=== PATIENT | male | born 1925 | race Asian ===

== ENCOUNTER 2016-05-14 00:56 | Emergency (ER) | payer MEDICARE, OTHER ==
[2016-05-14] MEDS ORDERED: NS 0.9% 1000 ML* 1,000 ML IV ONE (01:16)
[2016-05-14 01:35] LABS: Hematocrit 35 % (42-52); Hemoglobin 11.5 g/dl (14.0-18.0); Mean Corpuscular HGB Conc 33 g/dl (31-36); Mean Corpuscular Hemoglobin 30 pg (27-31); Mean Corpuscular Volume 89 fL (80-94); Mean Platelet Volume 10 um3 (7.4-10.4); Red Cell Distribution Width 14 % (10.5-15); White Blood Count 7.6 10^3/ul (3.5-10.8)
[2016-05-14 01:52] LABS: Albumin 3.1 g/dL (3.2-5.2); BUN/Creatinine Ratio 18.5 (8-20); Calcium 8.1 mg/dL (8.6-10.3); EGFR African American 38.3 (>60); EGFR Non-African American 29.8 (>60); Globulin 3.2 g/dL (2-4); Magnesium 2.3 mg/dL (1.9-2.7); Total Bilirubin 0.4 mg/dL (0.2-1.0); Total Protein 6.3 g/dL (6.4-8.9)
[2016-05-14 01:53] LABS: Troponin I 0.02 ng/mL (<0.04)
[2016-05-14 01:57] LABS: Potassium 3.9 mmol/L (3.5-5.0)
[2016-05-14 03:58] LABS: Urine Bacteria Absent (Absent); Urine Bilirubin Negative (Negative); Urine Glucose 3+(>=500 mg/dL) (Negative); Urine Nitrite Negative (Negative)
[2016-05-14 04:27] VITALS: BP 167/69
--- NOTE | 2016-05-14 05:48 | ED ---
brad Trivedi Timothy, scribed for Junior Cookuel on 05/14/16 at 0118 . HPI Diabetic - HPI Summary HPI Summary: LEVEL V CAVEAT: Pt appears to have dementia and is not oriented. Carson Rodriguez is an 89 yo male presenting to [facility] with low blood sugar, his family administered some kind of food or drink and his blood sugar increased. An parts interpreter is used via Ipad, ID number [id number]. He states he denies any MHx. He is oriented to his age, but not to place or time, as he states the current president is Kumar Barone. His Mx per his chart includes DM, HLD, HTN, CVA, tuberculosis, BPH, TURP, anxiety, and tobacco use for 20 years. - History Of Current Complaint Time Seen by Provider: 05/14/16 01:15 Hx Obtained From: Patient Hx From Patient Unobtainable Due To: Dementia Onset/Duration: Sudden Onset Timing: Constant Severity Initially: Moderate Severity Currently: Moderate Character: Alert Alleviating: Food Associated Signs & Symptoms: Negative - Allergies/Home Medications Allergies/Adverse Reactions: Allergies Allergy/AdvReac Type Severity Reaction Status Date / Time No Known Allergies Allergy Verified 05/14/16 01:50 Home Medications: Home Medications Amlodipine Besylate [Norvasc-] 5 mg PO DAILY 05/14/16 [History Confirmed ] Insulin Aspart [Novolog Flexpen] 8 unit INJ TID WITH MEALS 05/14/16 [History Confirmed 05/14/16] Insulin GLARGINE(*) [Lantus(*)] 16 units SUBCUT BEDTIME 05/14/16 [History Confirmed 05/14/16] PMH/Surg Hx/FS Hx/Imm Hx Endocrine/Hematology History: Reports: Hx Diabetes - NIDDM Cardiovascular History: Reports: Hx Hypercholesterolemia, Hx Hypertension, Other Cardiovascular Problems/Disorders - HYPERCHOLESTEROLEMIA, IDDM Denies: Hx Pacemaker/ICD History: Reports: Hx Benign Prostatic Hyperplasia, Other Problems/ Disorders - TURP Sensory History: Denies: Hx Hearing Aid Psychiatric History: Reports: Hx Anxiety Denies: Hx Panic Disorder - Surgical History Surgery Procedure, Year, and Place: TURP 2001, LEFT LEG OPEN REDUCTION APPROX 38 YRS AGO, CATARACTS. Infectious Disease History: Reports: Hx Tuberculosis - Family History Known Family History: Negative: Cardiac Disease, Hypertension, Diabetes - Social History Alcohol Use: None Substance Use Type: Reports: None Hx Tobacco Use: No Smoking Status (MU): Former Smoker Review of Systems - ROS Summary Review of Systems Summary: LEVEL V CAVEAT: Pt cannot review systems as he appears to have dementia. Constitutional: Other - low blood sugar Eyes: Negative ENT: Negative Cardiovascular: Negative Respiratory: Negative Gastrointestinal: Negative Genitourinary: Negative Musculoskeletal: Negative Positive: Rash Neurological: Negative Psychological: Normal All Other Systems Reviewed And Are Negative: Yes Physical Exam - Summary Physical Exam Summary: LEVEL V CAVEAT: Pt's PE limited due to dementia Triage Information Reviewed: Yes Vital Signs On Initial Exam: Initial Vital Signs Temp 97 F 05/14/16 01:29 Pulse 61 05/14/16 01:29 Resp 16 05/14/16 01:29 BP 146/58 05/14/16 01:29 Pulse Ox 97 05/14/16 01:29 Vital Signs Reviewed: Yes Completion Of Physical Exam Limited Due To: Dementia Appearance: Positive: Well-Appearing, No Pain Distress, Well-Nourished Skin: Positive: Warm, Skin Color Reflects Adequate Perfusion, Dry Head/Face: Positive: Normal Head/Face Inspection Eyes: Positive: EOMI, TOMÁS ENT: Positive: Normal ENT inspection Neck: Positive: Supple, Nontender Respiratory/Lung Sounds: Positive: Clear to Auscultation, Breath Sounds Present Cardiovascular: Positive: RRR, Pulses are Symmetrical in both Upper and Lower Extremities Abdomen Description: Positive: Nontender, Soft Bowel Sounds: Positive: Present Musculoskeletal: Positive: Normal, Strength/ROM Intact Neurological: Positive: Sensory/Motor Intact. Negative: Alert, Oriented to Person Place, Time Diagnostics - Laboratory Result Diagrams: 05/14/16 01:25 05/14/16 01:25 Lab Statement: Any lab studies that have been ordered have been reviewed, and results considered in the medical decision making process. - Radiology CXR Xray Interpretation: No Acute Changes - No acute disease Radiology Interpretation Completed By: ED Physician - EKG 0147 Cardiac Rate: NL - 62 BPM EKG Interpretation: NSR @ 62 BPM, no new changes Re-Evaluation - Re-Evaluation First Eval Re-Evaluation Time: 04:22 Change: Unchanged Comment: Pt's family is now present in room. They have been informed of his lab results, and wish to take him home. Diabetic Course/Dx - Course Assessment/Plan: Carson Rodriguez is an 89 yo male presenting to [facility] with low blood sugar. An parts interpreter is used via Ipad, ID number [id number]. After revie of Pt's ekg, imaging studies, and lab work, he will be discharged with hypoglycemia and appropriate instructions. - Diagnoses Provider Diagnoses: Hypoglycemia Discharge - Discharge Plan Condition: Stable Disposition: HOME Patient Education Materials: Diabetic Hypoglycemia (ED) Referrals: Michael Monteiro MD [Primary Care Provider] - 3 Days Additional Instructions: Please follow up with your primary care physician regarding your visit to the emergency department today. Return to the emergency department with any new or recurring symptoms. The documentation as recorded by the brad montanez Timothy accurately reflects the service I personally performed and the decisions made by , Cristhian Cook.
--- NOTE | 2016-05-14 08:07 | RAD ---
Indication: Weakness. Single frontal view of the chest performed at 0207 hours was reviewed. Comparison is made with previous exam dated January 09, 2016. No mediastinal shift is noted. Heart is of normal size and configuration. Lung quinonez appear clear. Previous identified infiltrates in the lungs present. Right upper lobe atelectasis or scarring is noted. IMPRESSION: NO ACTIVE CARDIOPULMONARY DISEASE IS NOTED.
== END 2016-05-14 04:27 | disposition home or self-care (01) ==
LOC: ED 00:56
DX: E16.2 Hypoglycemia, unspecified (principal); R21 Rash and other nonspecific skin eruption; Z87.891 Personal history of nicotine dependence
CPT/HCPCS: 36415; 71010; 80053; 81003; 81015; 83735; 83880; 84484; 85025; 85610; 85730; 93005; 99284

== ENCOUNTER 2017-03-07 10:06 | Inpatient (IN) | payer MEDICARE, OTHER ==
[2017-03-07] MEDS: NS 0.9% 1000 ML* 1,000 ML IV SCH ×2 (10:47→20:34)
--- NOTE | 2017-03-07 11:26 | RAD ---
INDICATION: Right face arm and leg weakness. COMPARISON: Comparison is made with a prior CT of the brain from September 12, 2013. TECHNIQUE: Contiguous axial sections of the brain were obtained from the skull base to the vertex without contrast. FINDINGS: The ventricles, cisterns and sulci are enlarged consistent with diffuse atrophy. There are multiple focal areas of decreased density in the subcortical and periventricular white matter suggestive of moderate to severe chronic small vessel ischemic changes. There is a small area of increased density in the cortex and subcortical white matter in the right frontal lobe which likely represents calcification less likely a small area of hemorrhage. No mass effect is present. No other focal abnormalities are seen. There is mild mucosal thickening in the visualized portion of the ethmoid air cells. The visualized portion of the paranasal sinuses and mastoid air cells otherwise appear clear. IMPRESSION: 1. SMALL AREA OF INCREASED DENSITY IN THE RIGHT FRONTAL LOBE LIKELY REPRESENTING CALCIFICATION LESS LIKELY A SMALL AREA OF HEMORRHAGE. CONSIDER MR IMAGING FOR FURTHER EVALUATION. 2. MODERATE TO SEVERE ATROPHY AND CHRONIC SMALL VESSEL ISCHEMIC CHANGES.
[2017-03-07 11:46] LABS: ABS Basophils 0.1 10^3/ul (0-0.2); ABS Eosinophils 0.1 10^3/ul (0-0.6); ABS Lymphocytes 2.2 10^3/ul (1.0-4.8); ABS Monocytes 0.9 10^3/ul (0-0.8); ABS Neutrophils 5.9 10^3/ul (1.5-7.7); ABS Nucleated RBC 0 10^3/ul; Eosinophil % 0.6 % (0-6); Hematocrit 35 % (42-52); Hemoglobin 11.5 g/dl (14.0-18.0); Lymphocyte % 24.2 % (25-47); Mean Corpuscular HGB Conc 33 g/dl (31-36); Mean Corpuscular Hemoglobin 30 pg (27-31); Mean Corpuscular Volume 91 fL (80-94); Mean Platelet Volume 9 um3 (7.4-10.4); Nucleated Red Blood Cells % 0; Platelet Count 113 10^3/ul (150-450); Red Blood Count 3.82 10^6/ul (4.0-5.4); Red Cell Distribution Width 14 % (10.5-15); White Blood Count 9.1 10^3/ul (3.5-10.8)
--- NOTE | 2017-03-07 11:52 | RAD ---
HISTORY: Cough, shortness of breath COMPARISONS: May 14, 2016 VIEWS: 1: frontal portable view of the chest at 11:24 AM FINDINGS: LINES AND TUBES: None. CARDIOMEDIASTINAL SILHOUETTE: The cardiomediastinal silhouette is stable. PLEURA: There is stable pleuroparenchymal scarring of the right upper lung. LUNG PARENCHYMA: The lungs are clear. ABDOMEN: The upper abdomen is clear. There is no subphrenic gas. BONES AND SOFT TISSUES: No bone or soft tissue abnormalities are noted. IMPRESSION: NO ACTIVE CARDIOPULMONARY DISEASE.
[2017-03-07 12:00] LABS: INR 0.96 (0.77-1.02)
[2017-03-07 12:02] LABS: EGFR Non-African American 29.2 (>60)
[2017-03-07 12:09] LABS: Urine Appearance Cloudy; Urine Blood 1+ (Negative); Urine Color Yellow; Urine Ketones Negative (Negative); Urine Protein 2+(100 mg/dL) (Negative); Urine Specific Gravity 1.011 (1.010-1.030); Urine Urobilinogen Negative (Negative)
[2017-03-07] MEDS ORDERED: cefTRIAXone(*) 1 GM in NS 0.9% 50 ML* 50 ML IVPB ONE (13:34)
[2017-03-07] MEDS ORDERED: cefTRIAXone(*) 1 GM ADVAN/BAG ONE (13:40)
[2017-03-07] MEDS ORDERED: Ondansetron INJ* 2 MG/ML VIAL IV PRN (14:35)
[2017-03-07] MEDS ORDERED: Dextrose 50% Syringe 50 ML* 25 GM/50 ML SYRINGE IV PUSH PRN (14:35)
[2017-03-07] MEDS ORDERED: Zosyn per Pharmacy* NOTE FOLLOW UP SCH (15:00)
[2017-03-07] MEDS ORDERED: Piperacillin/Tazobac ADVAN(*) 3.375 GM in NS 0.9% 100 ML* 100 ML IVPB ONE (15:00)
[2017-03-07] MEDS ORDERED: Piperacillin/Tazobac (*) 3.375 GM BAG ONE (15:11)
[2017-03-07] MEDS ORDERED: Azithromycin IV* 500 MG ADVAN VIAL IVPB ONE (16:14)
[2017-03-07] MEDS ORDERED: Insulin LISPRO* 1 UNITS UNIT SUBCUT SCH ×2 (16:30→23:45)
[2017-03-07] MEDS ORDERED: Azithromycin IV(*) 500 MG in NS 0.9% 250 ML* 250 ML IVPB SCH (17:00)
--- NOTE | 2017-03-07 17:03 | ED ---
Ken Trivedi Stephanie, scribed for Farhad Castorena MD on 03/07/17 at 1039 . Neurological HPI - HPI Summary HPI Summary: The pt is an 89 y/o M presenting to the ED with a R sided weakness that began yesterday evening. The patients marine underwriter translates between [place]ian and Estonian for the pt and reports that the pt usually walks with his walker. She reports that yesterday the pt was walking unusually while leaning towards one side of his body. Symptoms include chest congestion, productive cough, SOB and a difference in appearance in the R side of his face (per marine underwriter). The pt denies CP and abd pain. - History of Current Complaint Chief Complaint: EDGeneral Stated Complaint: GENERAL ILLNESS Time Seen by Provider: 03/07/17 10:23 Hx Obtained From: Patient, Family/Rn Medical Surgical, Durability Technician - bilingual interpreter is also marine underwriter Onset/Duration: Sudden Onset, Started days ago - 1 Timing: Constant Pain Intensity: 0 Pain Scale Used: 0-10 Numeric Aggravating: Nothing Alleviating: Nothing Associated Signs and Symptoms: Positive: Weakness - R sided face, upper extremity, and lower extremity, Shortness of Breath. Negative: Chest Pain - Additional Pertinent History Primary Care Physician: [id number] - Allergy/Home Medications Allergies/Adverse Reactions: Allergies Allergy/AdvReac Type Severity Reaction Status Date / Time No Known Allergies Allergy Verified 05/14/16 01:50 Home Medications: Home Medications Aspirin EC Low Dose* [Ecotrin EC Low Dose 81 MG*] 81 mg PO DAILY 03/07/17 [ History Confirmed 03/07/17] Furosemide TAB* [Lasix TAB*] 20 mg PO DAILY 03/07/17 [History Confirmed 03/07/17 ] Metoprolol Succinate XL TAB* [Toprol XL TAB*] 25 mg PO DAILY 03/07/17 [History Confirmed 03/07/17] amLODIPine TAB* [Norvasc 5 mg TAB*] 5 mg PO DAILY 03/07/17 [History Confirmed ] PMH/Surg Hx/FS Hx/Imm Hx Endocrine/Hematology History: Reports: Hx Diabetes - NIDDM Cardiovascular History: Reports: Hx Hypercholesterolemia, Hx Hypertension, Other Cardiovascular Problems/Disorders - HYPERCHOLESTEROLEMIA, IDDM Denies: Hx Pacemaker/ICD History: Reports: Hx Benign Prostatic Hyperplasia, Other Problems/ Disorders - TURP Sensory History: Denies: Hx Hearing Aid Psychiatric History: Reports: Hx Anxiety Denies: Hx Panic Disorder - Surgical History Surgery Procedure, Year, and Place: TURP 2001, LEFT LEG OPEN REDUCTION APPROX 38 YRS AGO, CATARACTS. Infectious Disease History: No Infectious Disease History: Reports: Hx Tuberculosis Denies: Traveled Outside the [place] in Last 30 Days - Family History Known Family History: Negative: Cardiac Disease, Hypertension, Diabetes - Social History Occupation: Retired Lives: At [facility] Alcohol Use: None Substance Use Type: Reports: None Hx Tobacco Use: No Smoking Status (MU): Former Smoker Review of Systems Negative: Fever Positive: Other - chest congestion. Negative: Chest Pain Positive: Shortness Of Breath, Cough - productive Negative: Abdominal Pain Positive: Weakness - R side of face, upper extremity, and lower extremity All Other Systems Reviewed And Are Negative: Yes Physical Exam - Summary Physical Exam Summary: General: well-appearing, no pain distress Skin: warm, color reflects adequate perfusion, dry Head: normal Eyes: EOMI, TOMÁS ENT: normal Neck: supple, nontender Respiratory: bilateral rhonchi while coughing Cardiovascular: RRR Abdomen: soft, nontender Bowel: present Musculoskeletal: normal, strength/ROM intact Neurological: normal, sensory/motor intact, A&O x3 Psychological: affect/mood appropriate Triage Information Reviewed: Yes Vital Signs On Initial Exam: Initial Vitals Temp Pulse Resp BP Pulse Ox 97.7 F 81 15 155/62 100 03/07/17 10:18 03/07/17 10:18 03/07/17 10:18 03/07/17 10:18 03/07/17 10:18 Vital Signs Reviewed: Yes Diagnostics - Vital Signs Vital Signs Temp Pulse Resp BP Pulse Ox 03/07/17 10:23 15 03/07/17 10:18 97.7 F 81 15 155/62 100 - Laboratory Lab Results: Lab Results 03/07/17 03/07/17 03/07/17 Range/Units 11:31 11:31 11:31 WBC 9.1 (3.5-10.8) 10^3/ul RBC 3.82 L (4.0-5.4) 10^6/ul Hgb 11.5 L (14.0-18.0) g/dl Hct 35 L (42-52) % MCV 91 (80-94) fL MCH 30 (27-31) pg MCHC 33 (31-36) g/dl RDW 14 (10.5-15) % Plt Count 113 L (150-450) 10^3/ul MPV 9 (7.4-10.4) um3 Neut % (Auto) 64.6 (38-83) % Lymph % (Auto) 24.2 L (25-47) % [place] % (Auto) 9.5 H (1-9) % Eos % (Auto) 0.6 (0-6) % Baso % (Auto) 1.1 (0-2) % Absolute Neuts (auto) 5.9 (1.5-7.7) 10^3/ul Absolute Lymphs (auto) 2.2 (1.0-4.8) 10^3/ul Absolute Monos (auto) 0.9 H (0-0.8) 10^3/ul Absolute Eos (auto) 0.1 (0-0.6) 10^3/ul Absolute Basos (auto) 0.1 (0-0.2) 10^3/ul Absolute Nucleated RBC 0 10^3/ul Nucleated RBC % 0 INR (Anticoag Therapy) 0.96 (0.77-1.02) APTT 31.6 (26.0-36.3) seconds Sodium 134 (133-145) mmol/L Potassium 4.2 (3.5-5.0) mmol/L Chloride 105 (101-111) mmol/L Carbon Dioxide 23 (22-32) mmol/L Anion Gap 6 (2-11) mmol/L BUN 38 H (6-24) mg/dL Creatinine 2.14 H (0.67-1.17) mg/dL Est GFR ( Amer) 37.6 (>60) Est GFR (Non-Af Amer) 29.2 (>60) BUN/Creatinine Ratio 17.8 (8-20) Glucose 320 H (70-100) mg/dL Lactic Acid (0.5-2.0) mmol/L Calcium 8.4 L (8.6-10.3) mg/dL Total Bilirubin 0.40 (0.2-1.0) mg/dL AST 18 (13-39) U/L ALT 14 (7-52) U/L Alkaline Phosphatase 90 (34-104) U/L Troponin I 0.03 (<0.04) ng/mL C-Reactive Protein 24.78 H (< 5.00) mg/L B-Natriuretic Peptide ( - 100) pg/mL Total Protein 6.8 (6.4-8.9) g/dL Albumin 3.2 (3.2-5.2) g/dL Globulin 3.6 (2-4) g/dL Albumin/Globulin Ratio 0.9 L (1-3) Urine Color Urine Appearance Urine pH (5-9) Ur Specific [place] (1.010-1.030) Urine Protein (Negative) Urine Ketones (Negative) Urine Blood (Negative) Urine Nitrate (Negative) Urine Bilirubin (Negative) Urine Urobilinogen (Negative) Ur Leukocyte Esterase (Negative) Urine WBC (Auto) (Absent) Urine RBC (Auto) (Absent) Urine Bacteria (Absent) Urine Yeast (Absent) Urine Glucose (Negative) 03/07/17 03/07/17 03/07/17 Range/Units 11:31 11:31 11:47 WBC (3.5-10.8) 10^3/ul RBC (4.0-5.4) 10^6/ul Hgb (14.0-18.0) g/dl Hct (42-52) % MCV (80-94) fL MCH (27-31) pg MCHC (31-36) g/dl RDW (10.5-15) % Plt Count (150-450) 10^3/ul MPV (7.4-10.4) um3 Neut % (Auto) (38-83) % Lymph % (Auto) (25-47) % [place] % (Auto) (1-9) % Eos % (Auto) (0-6) % Baso % (Auto) (0-2) % Absolute Neuts (auto) (1.5-7.7) 10^3/ul Absolute Lymphs (auto) (1.0-4.8) 10^3/ul Absolute Monos (auto) (0-0.8) 10^3/ul Absolute Eos (auto) (0-0.6) 10^3/ul Absolute Basos (auto) (0-0.2) 10^3/ul Absolute Nucleated RBC 10^3/ul Nucleated RBC % INR (Anticoag Therapy) (0.77-1.02) APTT (26.0-36.3) seconds Sodium (133-145) mmol/L Potassium (3.5-5.0) mmol/L Chloride (101-111) mmol/L Carbon Dioxide (22-32) mmol/L Anion Gap (2-11) mmol/L BUN (6-24) mg/dL Creatinine (0.67-1.17) mg/dL Est GFR ( Amer) (>60) Est GFR (Non-Af Amer) (>60) BUN/Creatinine Ratio (8-20) Glucose (70-100) mg/dL Lactic Acid 1.1 (0.5-2.0) mmol/L Calcium (8.6-10.3) mg/dL Total Bilirubin (0.2-1.0) mg/dL AST (13-39) U/L ALT (7-52) U/L Alkaline Phosphatase (34-104) U/L Troponin I (<0.04) ng/mL C-Reactive Protein (< 5.00) mg/L B-Natriuretic Peptide 119 H ( - 100) pg/mL Total Protein (6.4-8.9) g/dL Albumin (3.2-5.2) g/dL Globulin (2-4) g/dL Albumin/Globulin Ratio (1-3) Urine Color Yellow Urine Appearance Cloudy Urine pH 7.0 (5-9) Ur Specific [place] 1.011 (1.010-1.030) Urine Protein 2+(100 mg/dl) H (Negative) Urine Ketones Negative (Negative) Urine Blood 1+ H (Negative) Urine Nitrate Negative (Negative) Urine Bilirubin Negative (Negative) Urine Urobilinogen Negative (Negative) Ur Leukocyte Esterase 2+ H (Negative) Urine WBC (Auto) 3+(>20/hpf) H (Absent) Urine RBC (Auto) Trace(0-2/hpf) (Absent) Urine Bacteria Absent (Absent) Urine Yeast Present H (Absent) Urine Glucose 3+(>=500 mg/dl) H (Negative) Result Diagrams: 03/07/17 11:31 03/07/17 11:31 Lab Statement: Any lab studies that have been ordered have been reviewed, and results considered in the medical decision making process. - Radiology CXR Xray Interpretation: No Acute Changes Radiology Interpretation Completed By: Radiologist - NO ACTIVE CARDIOPULMONARY DISEASE. - CT Brain CT Interpretation: Positive (See Comments) CT Interpretation Completed By: Radiologist - 1. SMALL AREA OF INCREASED DENSITY IN THE RIGHT FRONTAL LOBE LIKELY REPRESENTING CALCIFICATION LESS LIKELY A SMALL AREA OF HEMORRHAGE. CONSIDER MR IMAGING FOR FURTHER EVALUATION. 2. MODERATE TO SEVERE ATROPHY AND CHRONIC SMALL VESSEL ISCHEMIC CHANGES. - EKG 10:44 EKG Rhythm: Sinus Rhythm - 79 BPM, with PAC's EKG Interpretation: Borderline ST depression, anterolateral leads NIH Scale - NIH Scale Level of Consciousness: Alert/Keenly Responsive Ask Patient the Month and His/Her Age: Neither Correct/Aphasic Ask Pt to Open/Close Eyes and Maintenance Plumber/Release Non-Paretic Hand: Both Correctly Best Gaze (Only Horizontal Eye Movement): Normal Visual Field Testing: No Visual Loss Facial Paresis-Pt to Smile & Close Eyes or Grimace Symmetry: Minor Paralysis Motor Function - Right Arm: Drifts LT 10 seconds Motor Function - Left Arm: No Drift-Holds 10 Seconds Motor Function - Right Leg: Drifts LT 10 seconds Motor Function - Left Leg: No Drift-Holds 10 Seconds Limb Ataxia-Must be out of Proportion to Weakness Present: Absent Sensory (Use Pinprick to Test Arms/Legs/Trunk/Face): Normal Best Language (Describe Picture, Name Items): No Aphasia Dysarthria (Read Several Words): Normal Extinction and Inattention: No Abnormality Total Score: 5 Course/Dx - Course Course Of Treatment: Medications reviewed. ADMIT HOSPITALIST. CRITICAL CARE TIME LESS THAN 30 MINUTES. - Diagnoses Provider Diagnoses: CVA (cerebral vascular accident), UTI (urinary tract infection), Altered mental state Discharge - Discharge Plan Condition: Stable Disposition: ADMITTED TO [facility] documentation as recorded by the Ken montanez Stephanie accurately reflects the service I personally performed and the decisions made by me, Farhad Castorena MD.
--- NOTE | 2017-03-07 17:58 | RAD ---
INDICATION: Stroke. History of LEFT hemispheric stroke. RIGHT-sided weakness. COMPARISON: September 13, 2013 TECHNIQUE: Bilateral carotid duplex scan. Stenosis estimations reflect velocity criteria that have been correlated to angiographic stenosis calculations based on distal internal carotid diameter. REPORT: RIGHT ICA: 194 cm/s peak systolic 46 cm/s end diastolic CCA: 58 cm/s peak systolic ICA/CCA peak systolic ratio: 3.4 Moderate smooth margin calcific and noncalcific plaque at the proximal segment of the RIGHT internal carotid artery. Preserved low resistance internal carotid artery waveforms. Antegrade flow documented at the RIGHT vertebral artery documented. LEFT ICA: 428 cm/s peak systolic 114 cm/s end diastolic CCA: 49 cm/s peak systolic ICA/CCA peak systolic ratio: 8.5 A severe predominant calcific plaque at the LEFT carotid bulb and proximal internal carotid artery. Spectral broadening of low resistance LEFT internal carotid artery waveform. Antegrade flow at the LEFT vertebral artery documented. IMPRESSION: 1. 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 2. 50-69% RIGHT internal carotid artery stenosis with interval worsening compared with the 2014 exam. CPT II Codes: 3100F
--- NOTE | 2017-03-07 19:56 | RAD ---
Indication: RIGHT side weakness since dinner last night. Question CVA. Previous strokes. Comparison: March 07, 2017 CT. Technique: [employer] [place] 1.5 Melissa [id number] with GEM suite. MRI brain without contrast. Report: Diffusion series is negative for acute or subacute ischemia. Severe prominence of the cerebral sulci and proportional moderate enlargement of the ventricles reflecting involutional change. Patent basal cisterns. Extensive increased T2 signal in the periventricular and subcortical white matters of the cerebral hemispheres most consistent with chronic small vessel ischemic disease. Small focus of linear increased T2/FLAIR signal at the RIGHT parietal postcentral sulcus corresponding with decreased signal on susceptibility series and hypodensity on CT consistent with small volume of subarachnoid hemorrhage. No additional extra or intra-axial hemorrhage evident. Preserved major intracranial flow-voids. Unremarkable orbital contents. No suspicious calvarial or skull base lesion evident. Mild mucosal thickening at the paranasal sinuses. Negative for paranasal sinus fluid levels. Clear mastoid air spaces. Negative for scalp hematoma. IMPRESSION: 1. Small volume of subarachnoid hemorrhage at the RIGHT parietal lobe post central sulcus. Negative for mass effect. 2. No compelling restricted diffusion to confirm acute or subacute ischemic infarct. 3. Advanced involutional change and stigmata of chronic small vessel ischemic disease. Results discussed with Dr. Yu 03/07/2017 7:53 PM EST
--- NOTE | 2017-03-07 20:05 | PN ---
Hospitalist Progress Note Date of Service: 03/07/17 discussed case with neurosurgery given SAH. At this point no need for surgical intervention. Neurosurgery recommends medical management. Will place in ICU for close obv. Keep sbp <150. Will monitor. Frequent neuro checks.
[2017-03-07] MEDS: ZOSYN 3.375 GM Q8H per EXTENDED INFUSION IVPB SCH ×2 (20:35)
--- NOTE | 2017-03-07 20:43 | HP ---
CC: Dr. Flynn; Dr. Garcias * HISTORY AND PHYSICAL: DATE OF ADMISSION: 03/07/17 PRIMARY CARE PROVIDER: Dr. Flynn. ATTENDING PHYSICIAN WHILE IN THE HOSPITAL: Hugo Thompson MD * (report dictated by Dalton Alvarado NP). CHIEF COMPLAINT: Cough. CONSULTING NEUROLOGIST: Dr. Garcias. HISTORY OF PRESENT ILLNESS: Mr. Rodriguez is an 89-year-old male patient who has a history of diabetes, hypertension, hyperlipidemia, history of CVA, history of remote TB, BPH who comes into the ED today. He really cannot give me much history. Most of the history is obtained from the patient's daughter. The patient apparently a couple of days ago started having some rhinorrhea and was coughing. She noticed yesterday that when he was walking with his walker, he was falling to his left, he was walking to the left. He really was not using his right side as much as he normally does according to her. She noticed that when he was eating thin liquids she does give him thin liquids, he was having trouble with choking and coughing. She was concerned because he normally gets out of the bed to commode and he was unable to do this. Normally he can walk with his walker and he was just really unable to function and she noticed a significant decline. She was concerned and then called 911 and brought the patient in for evaluation. There has been complaints of a cough. No reports of shortness of breath. No chest pain. No reports of fevers, nausea, vomiting , or diarrhea. He came into the ED today because on CT scan there was concern for possible calcification versus small hemorrhage, although that was less likely. He has worsening neurological symptoms and cough, possible aspiration pneumonia, so we were asked to evaluate for admission. PAST MEDICAL HISTORY: Significant for: 1. Diabetes. 2. Hypertension. 3. Hyperlipidemia. 4. History of CVA. 5. BPH. 6. History of TB. PAST SURGICAL HISTORY: Denied. HOME MEDICATIONS: Include; 1. Aspirin 81 mg daily. 2. Toprol 25 mg p.o. daily. 3. Lipitor 40 mg daily. 4. Norvasc 5 mg daily. 5. Lantus 20 units subcu at bedtime. 6. Insulin aspart 40 units t.i.d. with meals. 7. Lasix 20 mg daily. ALLERGIES TO MEDICATIONS: Include no known drug allergies. FAMILY HISTORY: Unknown. SOCIAL HISTORY: He is a former smoker, he quit in his 50s. He does not drink alcohol. He is a DNR. Surrogate decision maker is the patient's daughter. REVIEW OF SYSTEMS: There is no documented fever. He denied having any significant weight change. There was no ear discharge. There was no rhinorrhea. No sore throat or thyroid enlargement. Denied having any chest pain. There was no orthopnea. There was no nocturnal dyspnea. There was no abdominal pain. No nausea, no vomiting, no dysuria, no frequency, no seizure, no loss of consciousness, no pruritus and no skin ulcerations. Review of 14 systems completed, all others negative, although I questioned the validity as the patient does not speak much Luxembourgish. PHYSICAL EXAMINATION GENERAL: At this time, Mr. Rodriguez is an 89-year-old male patient. He is sitting in the ED stretcher. He does not appear to be in any acute distress. He is awake. He is alert. He appears to be well nourished. VITAL SIGNS: Blood pressure 140/60 with the pulse of 69, respirations were 18, O2 sat 100%, temperature 97.7. HEENT: Head: Atraumatic. Eyes: Sclerae anicteric and not pale. Pupils are reactive to light. Throat: Oral mucosa appears to be dry. No oropharyngeal erythema. NECK: Supple. LUNGS: He had rhonchi in the upper lobes. HEART: Sounds S1 and S2. Regular rate and rhythm. No murmurs, rubs, or gallops. ABDOMEN: Soft, flat, nontender. Bowel sounds present. EXTREMITIES: Pulses were 2+ throughout. He can move the upper extremities. He had 5/5 strength. Lower extremities, he is able to lift them up off the bed bilaterally with no pain. His left leg is shorter than his right leg. This is from an injury according to the family. NEUROLOGIC: He is awake. He is alert. He is oriented to himself. His sound controller were equal. His tongue was midline. He had no focal drooping. His speech appeared to be clear. [id number] was intact bilaterally. He can lift the right lower extremity. He did have 5/5 strength there and on the left side as well. SKIN: Intact. LABORATORY DATA AND DIAGNOSTIC STUDIES: WBC of 9.1, RBC of 3.82, hemoglobin 11.5, hematocrit 35, and platelet count of 113,000. INR 0.96, PTT of 31.6. Sodium is 134, potassium 4.2, chloride 105, bicarbonate 23, BUN 38, creatinine 2.14 which is near his baseline. His glucose is 320, lactic 1, calcium 8.4, total bilirubin 0.4, AST 18, ALT 14, alkaline phosphatase 90. Troponin 0.03. BNP 119. Albumin of 3.2. Urine showed 2+ protein, 1+ blood, 2+ leukocyte esterase, 3+ wbc. Brain CT showed a small area of increased density in the right frontal lobe, likely representing calcification, less likely a small area of hemorrhage. Consider MR imaging for further evaluation. Moderate to severe atrophy and chronic small vessel ischemic changes. There is a chest x-ray. No active cardiopulmonary disease. EKG showed a normal sinus rhythm, rate of 79. He had no ST elevations or T- wave inversions noted. Old medical records were reviewed. ASSESSMENT AND PLAN: Mr. Rodriguez is an 89-year-old male patient coming into the ED today. There was concern for increased right-sided weakness and the patient falling to his left. In addition to this, there was concern on CT imaging that there maybe small area of hemorrhage versus calcification. In addition to this , also concern for cough. He will be admitted under inpatient status for: 1. Right-sided weakness. Again on exam, he appears to be moving his right side very well. He has good strength on the right side. However, there was concern that he had been falling to his left and he had been having trouble with moving. Certainly if he does have aspiration pneumonia or possibly a urinary tract infection, that could certainly exacerbate the patient's stroke symptoms that he has had previously. My plan is to go ahead and get an MRI of the brain, consult Dr. Garcias. Given the CT findings, she will be evaluating him and continue to follow. I will order neuro checks which I have ordered. We will continue his aspirin. He is already on a statin. At this point, we will continue with these medications. We will get neuro checks and we will continue to follow him closely and place him on telemetry. 2. Cough. Again, I am concerned that the patient's daughter does state that he has been having trouble with thin liquids and she has been giving him thin liquids, they may have aspirated, so I will go ahead and get swallow evaluation , place him on Zosyn empirically, try to get a sputum culture, rechecking the patient for flu. We will get legionella antigens and strep pneumo antigens, and we will continue to follow. Chest x-ray was clear. 3. Diabetes. We will continue his Lantus and lispro sliding scale. 4. Hypertension. We will continue his meds as prescribed. 5. Hyperlipidemia. Continue statin therapy. 6. History of tuberculosis. He can follow with his primary, not on active issue currently at this point. Chest x-ray was clear. 7. DVT prophylaxis. He will be placed on heparin subcu as he is high risk. 8. Code status. He is a DNR. There is a DNR form with the patient. 9. Fluids, electrolytes, and nutrition. Again, he is n.p.o. Pending swallow eval. TIME SPENT: Time spent on the admission was 60 minutes, greater than half the time was spent crsy-ed-[id number] with the patient obtaining my history and physical; other half of the time was spent going over the plan of care with the patient and implementing plan of care. I did discuss the plan of care with my attending, Dr. Thompson, who is in agreement. DALTON ALVARADO, SILVIA [id number]/CPS #: [id number]
[2017-03-07] MEDS ORDERED: Insulin GLARGINE(*) 1 UNITS UNIT SUBCUT SCH (21:00)
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
[2017-03-07] MEDS ORDERED: Heparin VIAL(*) 5000 UNITS/ML VIAL (FIVE THOUSAND) SUBCUT SCH (22:00)
[2017-03-08] MEDS: Insulin LISPRO* 1 UNITS UNIT SUBCUT SCH ×6 (01:49→21:57)
[2017-03-08] MEDS: ZOSYN 3.375 GM Q8H per EXTENDED INFUSION IVPB SCH ×2 (04:16)
[2017-03-08] MEDS: NS 0.9% 1000 ML* 1,000 ML IV SCH (04:38)
[2017-03-08 06:05] LABS: INR 0.92 (0.77-1.02)
[2017-03-08 06:10] LABS: EGFR Non-African American 34.6 (>60)
[2017-03-08 06:20] LABS: Hematocrit 30 % (42-52); Hemoglobin 10.3 g/dl (14.0-18.0)
[2017-03-08] MEDS ORDERED: hydrALAZINE IV* 20 MG/ML VIAL IV SLOW PU PRN (06:32)
[2017-03-08 06:34] LABS: ABS Basophils 0 10^3/ul (0-0.2); ABS Eosinophils 0.1 10^3/ul (0-0.6); ABS Lymphocytes 2.7 10^3/ul (1.0-4.8); ABS Monocytes 0.8 10^3/ul (0-0.8); ABS Neutrophils 5.5 10^3/ul (1.5-7.7); ABS Nucleated RBC 0 10^3/ul; Eosinophil % 1.2 % (0-6); Hematocrit 19 % (42-52); Hemoglobin 6.4 g/dl (14.0-18.0); Lymphocyte % 29.8 % (25-47); Mean Corpuscular HGB Conc 34 g/dl (31-36); Mean Corpuscular Hemoglobin 31 pg (27-31); Mean Corpuscular Volume 90 fL (80-94); Mean Platelet Volume 9 um3 (7.4-10.4); Nucleated Red Blood Cells % 0; Platelet Count 120 10^3/ul (150-450); Red Blood Count 2.09 10^6/ul (4.0-5.4); Red Cell Distribution Width 14 % (10.5-15); White Blood Count 9.1 10^3/ul (3.5-10.8)
[2017-03-08] MEDS ORDERED: hydrALAZINE IV* 20 MG/ML VIAL ONE (06:51)
[2017-03-08] MEDS ORDERED: Aspirin EC Low Dose* 81 MG TAB.EC PO SCH (09:00)
[2017-03-08] MEDS: amLODIPine TAB* 5 MG PO SCH (09:13)
[2017-03-08] MEDS: Metoprolol Succinate XL TAB* 25 MG PO SCH (09:14)
[2017-03-08] MEDS: Atorvastatin* 40 MG TAB PO SCH (09:14)
--- NOTE | 2017-03-08 11:52 | PN ---
Progress Note - Progress Note Date of Service: 03/08/17 Note: CRITICAL CARE MEDICINE Date: 03/08/2017 Time: 1120 SUBJECTIVE: Patient seen and examined. PHYSICAL EXAM: Vital Signs: Reviewed. Neurologic: awake, doesn't speak equatorial guinean but follows visual commands and prompts well. maybe mild R weakness compared to left. did not access gait. HEENT: pupils equal. Sclera anicteric. Trachea midline. Tongue protrudes midline. Cardiovascular: S1 S2 Respiratory: rhonchi Abdomen: Soft, nt. No r/g/r. Extremities: Warm. Access: piv LABS: Reviewed. IMAGING: Reviewed. MEDICATIONS: Reviewed. ASSESSMENT: 89 M SAH PLAN: Neurologic: tolerating. family explains a drift in his ambulation that was new. We discussed his disease process and ddx. They are quite reasonable and would not be looking for invasive measures. Explained, obtaining plain CT head today ( no contrast nor cta) just to ensure no further bleeding. If stable as expected we can continue medical therapy and avoid further neuroimaging. If worse, then we can discuss risk/benefits further of what a CTA could show and procedure needs, but I think they are already inclined to decline any such endeavors and therefore all the more reason to avoid CTA, given his Cr dynamics as well. SBP maintain about 140 and less then 150. post ct and dec neurochecks. appreciated nsgy eval but no interventions. Cardiovascular: Perfsuing. vol status ok and can keep NS today to allow improved renal recovery and then see if he can advance po. Respiratory: may have mild aspiration. no abx need for this, can dc. Gastrointestinal: swallow eval and advance po Renal/Metabolic: f/u renal recovery fropm pre-renal Infectious Disease: dc abx Hematology: holding asa. would start checmical vte prophylaxis tomorrow if bleed stable. Endocrine: dec lantus dose. ssi Musculoskeletal: PT eval Psych/Social: social work consult. Supportive and preventative care as ordered. SUP: po VTE prophylaxis: heparin tomorrow Disposition: ICU today and potential floor soon Code Status: DNR, trial intubation currently Critical Care Time: 30min Cece Serna DO
--- NOTE | 2017-03-08 11:57 | RAD ---
INDICATION: Subarachnoid hemorrhage. COMPARISON: Comparison is made with prior CT and MRI of the brain from [facility] 2015. TECHNIQUE: Contiguous axial sections of the brain were obtained from the skull base to the vertex without contrast. FINDINGS: The ventricles, cisterns and sulci are enlarged consistent with diffuse atrophy. There are multiple focal areas of decreased density in the subcortical and periventricular white matter suggestive of moderate to severe chronic small vessel ischemic changes. There is a small area of increased density in a right posterior frontal lobe sulcus slightly decreased to unchanged from the prior CT study correlating with the subarachnoid hemorrhage noted on the MRI of the brain study. IMPRESSION: 1. SMALL AREA OF SUBARACHNOID HEMORRHAGE IN A POSTERIOR RIGHT FRONTAL LOBE SULCUS UNCHANGED TO SLIGHTLY DECREASED FROM THE PRIOR CT STUDY. 2. ATROPHY AND MODERATE TO SEVERE CHRONIC SMALL VESSEL ISCHEMIC CHANGES.
[2017-03-08] MEDS ORDERED: NS 0.9% 1000 ML* 1,000 ML IV SCH (12:10)
--- NOTE | 2017-03-08 13:59 | PN ---
Progress Note - Progress Note Date of Service: 03/08/17 Note: CRITICAL CARE MEDICINE Date: 03/08/2017 Time: [address] stable to improved. May have been just coup countrecoup type affect post fall a week or so back. No further interventions. D/w Neurology as well; in agreement. Ok to transfer to floor. Cece Serna, DO
--- NOTE | 2017-03-08 16:22 | CONS ---
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 Serna. LOCATION: He is in ICU bed 1. CHIEF COMPLAINT: Weakness. INTERVAL HISTORY: Mr. Rodriguez has done well through the night without any problems. I spoke to his son, Farhad, as ledger clerk. He denies headache. His son, Farhad, reports just about 2 weeks ago is when he fell. He thinks he just lost his balance. He normally uses a walker at home. He did not hit his head, but he after that was very sleepy and did not have his usual level of energy for quite some time. MEDICATIONS: Medications are reviewed and he is currently on, 1. Amlodipine 5 mg p.o. q. day. 2. Atorvastatin 40 mg p.o. q. day. 3. Hydralazine 10 mg IV q.4 hours as needed. 4. Insulin sliding scale. 5. Metoprolol 25 mg p.o. q. day. 6. He had received Zithromax and also ceftriaxone, which he is no longer on. PHYSICAL EXAMINATION: He is alert and cooperative. He has been afebrile throughout his hospital stay. Blood pressure most recently running about 130 to 140 systolic/40 to 50 diastolic. Heart rate is in the 60s. Respiratory rate is approximately 11 and oxygen saturation is 93% on room air. Neurologically, pupils are small, but react to light from about 2.5 to 2 mm. Eye movements are full and visual quinonez are full to finger counting bilaterally. Facial musculature is fairly symmetric. Palate rises symmetrically when asked to phonate and tongue protrudes a little bit to the right. He has some spasticity in the right arm and right leg. He has antigravity strength of all 4 limbs. There is a little bit of a drift on the right. Plantars are flexor bilaterally. He is very cooperative and is able to mimic some commands or follow commands pretty reliably through his son. LABORATORY DATA/DIAGNOSTIC STUDIES: Includes a drop in hemoglobin, which turned out to be a lab error and recheck was 10.3 this morning and hematocrit fairly stable at 30. White blood cell count 9.1 and platelet count 120,000. Chemistries this morning are fairly unremarkable. BUN is 30, creatinine 1.85, which is improved from yesterday. Urine showed 2+ protein, 2+ leukocyte esterase, 3+ white blood cells, 3+ glucose. Yeast were present. Bacteria absent. Urine culture is pending. Brain CT is reviewed, reveals atrophy of subcortical chronic ischemic changes as well as what appears to be a very small subarachnoid hemorrhage in the right posterior frontal lobe. It is unchanged from yesterday. Carotid ultrasound study from yesterday revealed a 50% to 69% right internal carotid stenosis and a greater than 70% left internal carotid stenosis. Peak systolic velocity was 428 on the left and end-diastolic 114. This was worse compared with prior study done in 2014. IMPRESSION: Impression is that of a very small subarachnoid hemorrhage and then some decline with possible aspiration and possible mild urinary tract infection. He looks to probably be at his baseline today. Given his age and my discussion with Dr. Serna and his discussion with the family, I do not recommend a further evaluation. It does not look like an aneurysmal subarachnoid hemorrhage and I suspect this is probably from when he fell. I would not pursue his carotid stenosis any further, as far as I can tell, he has had an old stroke and not a new one, so I do not think he has symptomatic carotid disease. Given his age and discussions with the family, I do not think surgical consideration is indicated. [id number]/[facility] #: [id number] MTDD
[2017-03-08] MEDS: Insulin GLARGINE(*) 1 UNITS UNIT SUBCUT SCH (21:18)
[2017-03-08] MEDS: Heparin VIAL(*) 5000 UNITS/ML VIAL (FIVE THOUSAND) SUBCUT SCH (21:19)
[2017-03-09] MEDS: Insulin LISPRO* 1 UNITS UNIT SUBCUT SCH ×5 (01:42→17:28)
[2017-03-09] MEDS: Heparin VIAL(*) 5000 UNITS/ML VIAL (FIVE THOUSAND) SUBCUT SCH ×3 (05:17→20:00)
[2017-03-09] MEDS: Atorvastatin* 40 MG TAB PO SCH (10:27)
[2017-03-09] MEDS: Metoprolol Succinate XL TAB* 25 MG PO SCH (10:27)
[2017-03-09] MEDS: amLODIPine TAB* 5 MG PO SCH (10:28)
[2017-03-09 11:23] LABS: ABS Basophils 0 10^3/ul (0-0.2); ABS Eosinophils 0.1 10^3/ul (0-0.6); ABS Lymphocytes 1.8 10^3/ul (1.0-4.8); ABS Monocytes 0.4 10^3/ul (0-0.8); ABS Neutrophils 4.3 10^3/ul (1.5-7.7); ABS Nucleated RBC 0 10^3/ul; Eosinophil % 1.9 % (0-6); Hematocrit 31 % (42-52); Hemoglobin 10.4 g/dl (14.0-18.0); Lymphocyte % 27.3 % (25-47); Mean Corpuscular HGB Conc 34 g/dl (31-36); Mean Corpuscular Hemoglobin 31 pg (27-31); Mean Corpuscular Volume 90 fL (80-94); Mean Platelet Volume 9 um3 (7.4-10.4); Nucleated Red Blood Cells % 0; Platelet Count 111 10^3/ul (150-450); Red Blood Count 3.42 10^6/ul (4.0-5.4); Red Cell Distribution Width 14 % (10.5-15); White Blood Count 6.7 10^3/ul (3.5-10.8)
[2017-03-09 11:40] LABS: EGFR Non-African American 37.9 (>60)
--- NOTE | 2017-03-09 12:08 | RAD ---
INDICATION: Altered mental status, subarachnoid hemorrhage, follow-up. COMPARISON: Comparison is made with prior MRI of the brain from March 07, [address] of the brain from March 08, 2017. TECHNIQUE: Contiguous axial sections of the brain were obtained from the skull base to the vertex without contrast. FINDINGS: The ventricles, cisterns and sulci are enlarged consistent with diffuse atrophy. There are multiple focal areas of decreased density in the subcortical and periventricular white matter suggestive of moderate to severe chronic small vessel ischemic changes. Again note is made of a small area of subarachnoid hemorrhage in a posterior right frontal lobe sulcus. This appears unchanged from the prior study. No other focal abnormalities or mass effect are seen. IMPRESSION: 1. SMALL AREA OF SUBARACHNOID HEMORRHAGE IN THE RIGHT FRONTAL LOBE, UNCHANGED. 2. ATROPHY AND MODERATE TO SEVERE CHRONIC SMALL VESSEL ISCHEMIC CHANGES.
[2017-03-09] MEDS ORDERED: Dextrose 50% Syringe 50 ML* 25 GM/50 ML SYRINGE IV PUSH PRN (12:12)
--- NOTE | 2017-03-09 12:19 | PN ---
Subjective Date of Service: 03/09/17 Interval History: Pt examined today at the bedside. The patients family is translating for me. He denies chest pain or sob. Family states that he is more alert and conversive but is confused. Pt denies h/a or sob. ROS-denies fever, denies chills, denies chest pain, denies sob, denies nausea, denies vomiting, denies lightheadedness, denies loc, denies abdominal pain review of 11 systems completed all others negative, Objective Active Medications: Acetaminophen (Tylenol Tab*) 650 mg PO Q4H PRN PRN Reason: FEVER/PAIN Amlodipine Besylate (Norvasc Tab*) 5 mg PO DAILY [facility] Last Admin: 03/09/17 10:28 Dose: 5 mg Atorvastatin Calcium (Lipitor*) 40 mg PO DAILY [facility] Last Admin: 03/09/17 10:27 Dose: 40 mg Dextrose (D50w Syringe 50 Ml*) 12.5 gm IV PUSH .FOR FS < 60 - SS PRN PRN Reason: FS < 60 Dextrose (D50w Syringe 50 Ml*) 12.5 gm IV PUSH .FOR FS < 60 - SS PRN PRN Reason: FS < 60 Heparin Sodium (Porcine) (Heparin Vial(*)) 5,000 units SUBCUT Q8HR [facility] Last Admin: 03/09/17 05:17 Dose: 5,000 units Hydralazine HCl (Apresoline Iv*) 10 mg IV SLOW PU Q4H PRN PRN Reason: SBP>150 Insulin Glargine (Lantus(*)) 10 units SUBCUT BEDTIME [facility] Last Admin: 03/08/17 21:18 Dose: 10 unit Insulin Human Lispro (Humalog*) 0 units SUBCUT AC [facility] PRN Reason: Protocol Metoprolol Succinate (Toprol Xl Tab*) 25 mg PO DAILY [facility] Last Admin: 03/09/17 10:27 Dose: 25 mg Ondansetron HCl (Zofran Inj*) 4 mg IV Q6H PRN PRN Reason: NAUSEA Vital Signs - 8 hr 03/09/17 03/09/17 08:06 09:30 Respiratory 18 Rate O2 Sat by Pulse 98 Oximetry Oxygen Devices in Use Now: None Appearance: 89 y/o male patient sitting in chair NAD, Eyes: No Scleral Icterus, PERRLA Ears/Nose/Mouth/Throat: NL Teeth, Lips, Gums Neck: NL Appearance and Movements; NL JVP Respiratory: Symmetrical Chest Expansion and Respiratory Effort, Clear to Auscultation Cardiovascular: NL Sounds; No Murmurs; No JVD Abdominal: NL Sounds; No Tenderness; No Distention Extremities: No Edema Skin: No Rash or Ulcers Neurological: - - awake to self and confused to place and time, speech clear, moving all four exts, weakness to right but at baseline, no facial droop, Lines/Tubes/Other Access: Clean, Dry and Intact Peripheral IV Result Diagrams: 03/09/17 11:13 03/09/17 11:13 Additional Lab and Data: Lab Results 03/07/17 03/07/17 03/07/17 Range/Units 11:31 11:31 11:31 WBC 9.1 (3.5-10.8) 10^3/ul RBC 3.82 L (4.0-5.4) 10^6/ul Hgb 11.5 L (14.0-18.0) g/dl Hct 35 L (42-52) % MCV 91 (80-94) fL MCH 30 (27-31) pg MCHC 33 (31-36) g/dl RDW 14 (10.5-15) % Plt Count 113 L (150-450) 10^3/ul MPV 9 (7.4-10.4) um3 Neut % (Auto) 64.6 (38-83) % Lymph % (Auto) 24.2 L (25-47) % [place] % (Auto) 9.5 H (1-9) % Eos % (Auto) 0.6 (0-6) % Baso % (Auto) 1.1 (0-2) % Absolute Neuts (auto) 5.9 (1.5-7.7) 10^3/ul Absolute Lymphs (auto) 2.2 (1.0-4.8) 10^3/ul Absolute Monos (auto) 0.9 H (0-0.8) 10^3/ul Absolute Eos (auto) 0.1 (0-0.6) 10^3/ul Absolute Basos (auto) 0.1 (0-0.2) 10^3/ul Absolute Nucleated RBC 0 10^3/ul Nucleated RBC % 0 INR (Anticoag Therapy) 0.96 (0.77-1.02) APTT 31.6 (26.0-36.3) seconds Sodium 134 (133-145) mmol/L Potassium 4.2 (3.5-5.0) mmol/L Chloride 105 (101-111) mmol/L Carbon Dioxide 23 (22-32) mmol/L Anion Gap 6 (2-11) mmol/L BUN 38 H (6-24) mg/dL Creatinine 2.14 H (0.67-1.17) mg/dL Est GFR ( Amer) 37.6 (>60) Est GFR (Non-Af Amer) 29.2 (>60) BUN/Creatinine Ratio 17.8 (8-20) Glucose 320 H (70-100) mg/dL Lactic Acid (0.5-2.0) mmol/L Calcium 8.4 L (8.6-10.3) mg/dL Total Bilirubin 0.40 (0.2-1.0) mg/dL AST 18 (13-39) U/L ALT 14 (7-52) U/L Alkaline Phosphatase 90 (34-104) U/L Troponin I 0.03 (<0.04) ng/mL C-Reactive Protein 24.78 H (< 5.00) mg/L B-Natriuretic Peptide ( - 100) pg/mL Total Protein 6.8 (6.4-8.9) g/dL Albumin 3.2 (3.2-5.2) g/dL Globulin 3.6 (2-4) g/dL Albumin/Globulin Ratio 0.9 L (1-3) Urine Color Urine Appearance Urine pH (5-9) Ur Specific [place] (1.010-1.030) Urine Protein (Negative) Urine Ketones (Negative) Urine Blood (Negative) Urine Nitrate (Negative) Urine Bilirubin (Negative) Urine Urobilinogen (Negative) Ur Leukocyte Esterase (Negative) Urine WBC (Auto) (Absent) Urine RBC (Auto) (Absent) Urine Bacteria (Absent) Urine Yeast (Absent) Urine Glucose (Negative) 03/07/17 03/07/17 03/07/17 Range/Units 11:31 11:31 11:47 WBC (3.5-10.8) 10^3/ul RBC (4.0-5.4) 10^6/ul Hgb (14.0-18.0) g/dl Hct (42-52) % MCV (80-94) fL MCH (27-31) pg MCHC (31-36) g/dl RDW (10.5-15) % Plt Count (150-450) 10^3/ul MPV (7.4-10.4) um3 Neut % (Auto) (38-83) % Lymph % (Auto) (25-47) % [place] % (Auto) (1-9) % Eos % (Auto) (0-6) % Baso % (Auto) (0-2) % Absolute Neuts (auto) (1.5-7.7) 10^3/ul Absolute Lymphs (auto) (1.0-4.8) 10^3/ul Absolute Monos (auto) (0-0.8) 10^3/ul Absolute Eos (auto) (0-0.6) 10^3/ul Absolute Basos (auto) (0-0.2) 10^3/ul Absolute Nucleated RBC 10^3/ul Nucleated RBC % INR (Anticoag Therapy) (0.77-1.02) APTT (26.0-36.3) seconds Sodium (133-145) mmol/L Potassium (3.5-5.0) mmol/L Chloride (101-111) mmol/L Carbon Dioxide (22-32) mmol/L Anion Gap (2-11) mmol/L BUN (6-24) mg/dL Creatinine (0.67-1.17) mg/dL Est GFR ( Amer) (>60) Est GFR (Non-Af Amer) (>60) BUN/Creatinine Ratio (8-20) Glucose (70-100) mg/dL Lactic Acid 1.1 (0.5-2.0) mmol/L Calcium (8.6-10.3) mg/dL Total Bilirubin (0.2-1.0) mg/dL AST (13-39) U/L ALT (7-52) U/L Alkaline Phosphatase (34-104) U/L Troponin I (<0.04) ng/mL C-Reactive Protein (< 5.00) mg/L B-Natriuretic Peptide 119 H ( - 100) pg/mL Total Protein (6.4-8.9) g/dL Albumin (3.2-5.2) g/dL Globulin (2-4) g/dL Albumin/Globulin Ratio (1-3) Urine Color Yellow Urine Appearance Cloudy Urine pH 7.0 (5-9) Ur Specific [place] 1.011 (1.010-1.030) Urine Protein 2+(100 mg/dl) H (Negative) Urine Ketones Negative (Negative) Urine Blood 1+ H (Negative) Urine Nitrate Negative (Negative) Urine Bilirubin Negative (Negative) Urine Urobilinogen Negative (Negative) Ur Leukocyte Esterase 2+ H (Negative) Urine WBC (Auto) 3+(>20/hpf) H (Absent) Urine RBC (Auto) Trace(0-2/hpf) (Absent) Urine Bacteria Absent (Absent) Urine Yeast Present H (Absent) Urine Glucose 3+(>=500 mg/dl) H (Negative) Microbiology and Other Data: Microbiology 03/08/17 07:21 Gram Stain - Final Sputum Expectorated Sputum Culture - Preliminary No Growth Day 1 03/07/17 21:02 Nasal Screen MRSA (PCR)(SRIDHAR) - Final Nasal Mrsa Positive 03/07/17 15:00 Influenza Types A,B Antigen (SRIDHAR) - Final Nasal Specimen received for Influenza A/B Molecular testing Assess/Plan/Problems-Billing Assessment: 89 y/o male patient [place] [facility] [place] of weakness and worsening confusion found to have SAH, - Patient Problems (1) HTN (hypertension) Current Visit: Yes Status: Acute Priority: High Comment: Bloop pressure stable, continue PO meds, (2) HLD (hyperlipidemia) Current Visit: Yes Status: Acute Priority: High Comment: Continue statin (3) Diabetes Current Visit: Yes Status: Acute Priority: High Comment: continue lantus and sliding scale, fingersticks stable, (4) SAH (subarachnoid hemorrhage) Current Visit: Yes Status: Acute Priority: High Comment: No surgery at this point, SAH stable, continue with medical management, neuro checks q shift, (5) BPH (benign prostatic hyperplasia) Current Visit: Yes Status: Acute Priority: High Comment: continue current medical managment (6) DNR (do not resuscitate) Current Visit: Yes Status: Acute Priority: High (7) DVT prophylaxis Current Visit: Yes Status: Acute Priority: High Comment: SCD (8) CVA (cerebral vascular accident) Current Visit: No Status: Chronic Code(s): I63.9 - CEREBRAL INFARCTION, UNSPECIFIED SNOMED Code(s): 184549184 Comment: No asa given bleed, continue statin (9) Carotid stenosis Current Visit: Yes Status: Acute Code(s): I65.29 - OCCLUSION AND STENOSIS OF UNSPECIFIED CAROTID ARTERY SNOMED Code(s): 66666613 Comment: Continue medical management, statin no asa given SAH Status and Disposition: PT eval, home vs, SNF, medical management of SAH
--- NOTE | 2017-03-09 14:18 | RAD ---
INDICATION: Cough. COMPARISON: Comparison is made with prior chest x-ray studies from September 12, 2013, May 14, 2016 and March 07, 2017. TECHNIQUE: A portable view of the chest was obtained. FINDINGS: The heart is within normal limits in size. There is a chronic infiltrate in the right upper lobe toward the right lung apex with volume loss which is unchanged from prior studies. The lungs are otherwise clear. No pleural effusion is seen. IMPRESSION: 1. NO EVIDENCE FOR ACUTE FINDING. 2. CHRONIC RIGHT UPPER LOBE INFILTRATE, UNCHANGED.
[2017-03-09] MEDS ORDERED: amLODIPine TAB* 5 MG PO ONE (18:54)
[2017-03-09] MEDS: Insulin GLARGINE(*) 1 UNITS UNIT SUBCUT SCH (19:26)
[2017-03-09] MEDS: Acetaminophen TAB* 325 MG PO PRN (19:37)
[2017-03-10] MEDS: Heparin VIAL(*) 5000 UNITS/ML VIAL (FIVE THOUSAND) SUBCUT SCH ×3 (05:20→20:02)
[2017-03-10] MEDS: Insulin LISPRO* 1 UNITS UNIT SUBCUT SCH ×3 (08:26→17:14)
[2017-03-10 08:36] LABS: ABS Basophils 0 10^3/ul (0-0.2); ABS Eosinophils 0.1 10^3/ul (0-0.6); ABS Lymphocytes 1.7 10^3/ul (1.0-4.8); ABS Monocytes 0.4 10^3/ul (0-0.8); ABS Neutrophils 4.1 10^3/ul (1.5-7.7); ABS Nucleated RBC 0 10^3/ul; Eosinophil % 1.9 % (0-6); Hematocrit 30 % (42-52); Hemoglobin 10.1 g/dl (14.0-18.0); Lymphocyte % 26.8 % (25-47); Mean Corpuscular HGB Conc 34 g/dl (31-36); Mean Corpuscular Hemoglobin 30 pg (27-31); Mean Corpuscular Volume 90 fL (80-94); Mean Platelet Volume 10 um3 (7.4-10.4); Nucleated Red Blood Cells % 0; Platelet Count 102 10^3/ul (150-450); Red Blood Count 3.34 10^6/ul (4.0-5.4); Red Cell Distribution Width 14 % (10.5-15); White Blood Count 6.3 10^3/ul (3.5-10.8)
[2017-03-10 08:52] LABS: EGFR Non-African American 38.9 (>60)
[2017-03-10] MEDS: Atorvastatin* 40 MG TAB PO SCH (09:44)
[2017-03-10] MEDS: amLODIPine TAB* 5 MG PO SCH (09:44)
[2017-03-10] MEDS: Metoprolol Succinate XL TAB* 25 MG PO SCH (09:44)
[2017-03-10] MEDS: Insulin GLARGINE(*) 1 UNITS UNIT SUBCUT SCH (20:03)
--- NOTE | 2017-03-10 20:18 | PN ---
Subjective Date of Service: 03/10/17 Interval History: Spoke to patient through staff who speaks mandarin: c/o generalized weakness, Denies chest pain, Denies shortness of breath, Denies N/V/D Family History: Unchanged from Admission Social History: Unchanged from Admission Past Medical History: Unchanged from Admission Objective Active Medications: Acetaminophen (Tylenol Tab*) 650 mg PO Q4H PRN PRN Reason: FEVER/PAIN Last Admin: 03/09/17 19:37 Dose: 650 mg Amlodipine Besylate (Norvasc Tab*) 10 mg PO DAILY [facility] Last Admin: 03/10/17 09:44 Dose: 10 mg Atorvastatin Calcium (Lipitor*) 40 mg PO DAILY [facility] Last Admin: 03/10/17 09:44 Dose: 40 mg Dextrose (D50w Syringe 50 Ml*) 12.5 gm IV PUSH .FOR FS < 60 - SS PRN PRN Reason: FS < 60 Dextrose (D50w Syringe 50 Ml*) 12.5 gm IV PUSH .FOR FS < 60 - SS PRN PRN Reason: FS < 60 Heparin Sodium (Porcine) (Heparin Vial(*)) 5,000 units SUBCUT Q8HR [facility] Last Admin: 03/10/17 20:02 Dose: 5,000 units Hydralazine HCl (Apresoline Iv*) 10 mg IV SLOW PU Q4H PRN PRN Reason: SBP>150 Last Admin: 03/09/17 16:15 Dose: 10 mg Insulin Glargine (Lantus(*)) 10 units SUBCUT BEDTIME [facility] Last Admin: 03/10/17 20:03 Dose: 10 unit Insulin Human Lispro (Humalog*) 0 units SUBCUT AC [facility] PRN Reason: Protocol Last Admin: 03/10/17 17:14 Dose: Not Given Metoprolol Succinate (Toprol Xl Tab*) 25 mg PO DAILY [facility] Last Admin: 03/10/17 09:44 Dose: 25 mg Ondansetron HCl (Zofran Inj*) 4 mg IV Q6H PRN PRN Reason: NAUSEA Vital Signs - 8 hr 03/10/17 15:38 Temperature 98.5 F Pulse Rate 77 Respiratory 16 Rate Blood Pressure 131/42 (mmHg) O2 Sat by Pulse 95 Oximetry Oxygen Devices in Use Now: None Appearance: Alert, awake, appears comfortable Eyes: No Scleral Icterus Ears/Nose/Mouth/Throat: NL Teeth, Lips, Gums, Mucous Membranes Moist Neck: NL Appearance and Movements; NL JVP, Trachea Midline Respiratory: Symmetrical Chest Expansion and Respiratory Effort, Clear to Auscultation Cardiovascular: NL Sounds; No Murmurs; No JVD, RRR, No Edema Abdominal: NL Sounds; No Tenderness; No Distention Extremities: No Edema, No Clubbing, Cyanosis Skin: No Rash or Ulcers Neurological: Alert and Oriented x 3 Nutrition: Taking PO's Result Diagrams: 03/11/17 04:27 03/11/17 04:47 Additional Lab and Data: Lab Results 03/07/17 03/07/17 03/07/17 Range/Units 11:31 11:31 11:31 WBC 9.1 (3.5-10.8) 10^3/ul RBC 3.82 L (4.0-5.4) 10^6/ul Hgb 11.5 L (14.0-18.0) g/dl Hct 35 L (42-52) % MCV 91 (80-94) fL MCH 30 (27-31) pg MCHC 33 (31-36) g/dl RDW 14 (10.5-15) % Plt Count 113 L (150-450) 10^3/ul MPV 9 (7.4-10.4) um3 Neut % (Auto) 64.6 (38-83) % Lymph % (Auto) 24.2 L (25-47) % [place] % (Auto) 9.5 H (1-9) % Eos % (Auto) 0.6 (0-6) % Baso % (Auto) 1.1 (0-2) % Absolute Neuts (auto) 5.9 (1.5-7.7) 10^3/ul Absolute Lymphs (auto) 2.2 (1.0-4.8) 10^3/ul Absolute Monos (auto) 0.9 H (0-0.8) 10^3/ul Absolute Eos (auto) 0.1 (0-0.6) 10^3/ul Absolute Basos (auto) 0.1 (0-0.2) 10^3/ul Absolute Nucleated RBC 0 10^3/ul Nucleated RBC % 0 INR (Anticoag Therapy) 0.96 (0.77-1.02) APTT 31.6 (26.0-36.3) seconds Sodium 134 (133-145) mmol/L Potassium 4.2 (3.5-5.0) mmol/L Chloride 105 (101-111) mmol/L Carbon Dioxide 23 (22-32) mmol/L Anion Gap 6 (2-11) mmol/L BUN 38 H (6-24) mg/dL Creatinine 2.14 H (0.67-1.17) mg/dL Est GFR ( Amer) 37.6 (>60) Est GFR (Non-Af Amer) 29.2 (>60) BUN/Creatinine Ratio 17.8 (8-20) Glucose 320 H (70-100) mg/dL Lactic Acid (0.5-2.0) mmol/L Calcium 8.4 L (8.6-10.3) mg/dL Total Bilirubin 0.40 (0.2-1.0) mg/dL AST 18 (13-39) U/L ALT 14 (7-52) U/L Alkaline Phosphatase 90 (34-104) U/L Troponin I 0.03 (<0.04) ng/mL C-Reactive Protein 24.78 H (< 5.00) mg/L B-Natriuretic Peptide ( - 100) pg/mL Total Protein 6.8 (6.4-8.9) g/dL Albumin 3.2 (3.2-5.2) g/dL Globulin 3.6 (2-4) g/dL Albumin/Globulin Ratio 0.9 L (1-3) Urine Color Urine Appearance Urine pH (5-9) Ur Specific [place] (1.010-1.030) Urine Protein (Negative) Urine Ketones (Negative) Urine Blood (Negative) Urine Nitrate (Negative) Urine Bilirubin (Negative) Urine Urobilinogen (Negative) Ur Leukocyte Esterase (Negative) Urine WBC (Auto) (Absent) Urine RBC (Auto) (Absent) Urine Bacteria (Absent) Urine Yeast (Absent) Urine Glucose (Negative) 03/07/17 03/07/17 03/07/17 Range/Units 11:31 11:31 11:47 WBC (3.5-10.8) 10^3/ul RBC (4.0-5.4) 10^6/ul Hgb (14.0-18.0) g/dl Hct (42-52) % MCV (80-94) fL MCH (27-31) pg MCHC (31-36) g/dl RDW (10.5-15) % Plt Count (150-450) 10^3/ul MPV (7.4-10.4) um3 Neut % (Auto) (38-83) % Lymph % (Auto) (25-47) % [place] % (Auto) (1-9) % Eos % (Auto) (0-6) % Baso % (Auto) (0-2) % Absolute Neuts (auto) (1.5-7.7) 10^3/ul Absolute Lymphs (auto) (1.0-4.8) 10^3/ul Absolute Monos (auto) (0-0.8) 10^3/ul Absolute Eos (auto) (0-0.6) 10^3/ul Absolute Basos (auto) (0-0.2) 10^3/ul Absolute Nucleated RBC 10^3/ul Nucleated RBC % INR (Anticoag Therapy) (0.77-1.02) APTT (26.0-36.3) seconds Sodium (133-145) mmol/L Potassium (3.5-5.0) mmol/L Chloride (101-111) mmol/L Carbon Dioxide (22-32) mmol/L Anion Gap (2-11) mmol/L BUN (6-24) mg/dL Creatinine (0.67-1.17) mg/dL Est GFR ( Amer) (>60) Est GFR (Non-Af Amer) (>60) BUN/Creatinine Ratio (8-20) Glucose (70-100) mg/dL Lactic Acid 1.1 (0.5-2.0) mmol/L Calcium (8.6-10.3) mg/dL Total Bilirubin (0.2-1.0) mg/dL AST (13-39) U/L ALT (7-52) U/L Alkaline Phosphatase (34-104) U/L Troponin I (<0.04) ng/mL C-Reactive Protein (< 5.00) mg/L B-Natriuretic Peptide 119 H ( - 100) pg/mL Total Protein (6.4-8.9) g/dL Albumin (3.2-5.2) g/dL Globulin (2-4) g/dL Albumin/Globulin Ratio (1-3) Urine Color Yellow Urine Appearance Cloudy Urine pH 7.0 (5-9) Ur Specific [place] 1.011 (1.010-1.030) Urine Protein 2+(100 mg/dl) H (Negative) Urine Ketones Negative (Negative) Urine Blood 1+ H (Negative) Urine Nitrate Negative (Negative) Urine Bilirubin Negative (Negative) Urine Urobilinogen Negative (Negative) Ur Leukocyte Esterase 2+ H (Negative) Urine WBC (Auto) 3+(>20/hpf) H (Absent) Urine RBC (Auto) Trace(0-2/hpf) (Absent) Urine Bacteria Absent (Absent) Urine Yeast Present H (Absent) Urine Glucose 3+(>=500 mg/dl) H (Negative) Microbiology and Other Data: Microbiology 03/08/17 07:21 Gram Stain - Final Sputum Expectorated Sputum Culture - Preliminary No Growth Day 1 03/07/17 21:02 Nasal Screen MRSA (PCR)(SRIDHAR) - Final Nasal Mrsa Positive 03/07/17 15:00 Influenza Types A,B Antigen (SRIDHAR) - Final Nasal Specimen received for Influenza A/B Molecular testing Assess/Plan/Problems-Billing Assessment: 89 y/o male patient presenting to [facility] – [place] with complaints of weakness and worsening confusion found to have SAH, alert today - Patient Problems (1) DNR (do not resuscitate) Current Visit: Yes Status: Acute Priority: High (2) DVT prophylaxis Current Visit: Yes Status: Acute Priority: High Code(s): KBY2529 - SNOMED Code(s): 874461055 Comment: SCD (3) Diabetes Current Visit: Yes Status: Acute Priority: High Code(s): E11.9 - TYPE 2 DIABETES MELLITUS WITHOUT COMPLICATIONS SNOMED Code(s): 90113099 Comment: continue lantus and sliding scale (4) HLD (hyperlipidemia) Current Visit: Yes Status: Acute Priority: High Code(s): E78.5 - HYPERLIPIDEMIA, UNSPECIFIED SNOMED Code(s): 62050310 Comment: Continue statin (5) HTN (hypertension) Current Visit: Yes Status: Acute Priority: High Code(s): I10 - ESSENTIAL ( PRIMARY) HYPERTENSION SNOMED Code(s): 55756283 Comment: Bloop pressure stable, continue PO meds, (6) SAH (subarachnoid hemorrhage) Current Visit: Yes Status: Acute Priority: High Code(s): I60.9 - NONTRAUMATIC SUBARACHNOID HEMORRHAGE, UNSPECIFIED SNOMED Code(s): 504627112 Comment: No surgery at this point, SAH stable, continue with medical management, neuro checks q shift, Will get a PT evaluation Will have a Swallow eval completed Status and Disposition: PT eval, waiting for placement, medical management of SAH
[2017-03-10] MEDS: Acetaminophen TAB* 325 MG PO PRN (22:32)
[2017-03-11 05:13] LABS: EGFR Non-African American 37.4 (>60)
[2017-03-11 05:32] LABS: ABS Basophils 0.1 10^3/ul (0-0.2); ABS Eosinophils 0.1 10^3/ul (0-0.6); ABS Lymphocytes 1.4 10^3/ul (1.0-4.8); ABS Monocytes 0.4 10^3/ul (0-0.8); ABS Neutrophils 5.2 10^3/ul (1.5-7.7); ABS Nucleated RBC 0 10^3/ul; Eosinophil % 1.8 % (0-6); Hematocrit 33 % (42-52); Hemoglobin 10.6 g/dl (14.0-18.0); Lymphocyte % 19.5 % (25-47); Mean Corpuscular HGB Conc 32 g/dl (31-36); Mean Corpuscular Hemoglobin 30 pg (27-31); Mean Corpuscular Volume 93 fL (80-94); Mean Platelet Volume 9 um3 (7.4-10.4); Nucleated Red Blood Cells % 0.1; Platelet Count 94 10^3/ul (150-450); Red Blood Count 3.51 10^6/ul (4.0-5.4); Red Cell Distribution Width 14 % (10.5-15); White Blood Count 7.3 10^3/ul (3.5-10.8)
[2017-03-11] MEDS: Heparin VIAL(*) 5000 UNITS/ML VIAL (FIVE THOUSAND) SUBCUT SCH ×3 (05:51→20:54)
[2017-03-11] MEDS: Insulin LISPRO* 1 UNITS UNIT SUBCUT SCH ×3 (07:58→17:27)
[2017-03-11] MEDS: amLODIPine TAB* 5 MG PO SCH (09:00)
[2017-03-11] MEDS: Acetaminophen TAB* 325 MG PO PRN ×2 (09:00→16:41)
[2017-03-11] MEDS: Atorvastatin* 40 MG TAB PO SCH (09:00)
[2017-03-11] MEDS: Metoprolol Succinate XL TAB* 25 MG PO SCH (09:00)
--- NOTE | 2017-03-11 16:33 | PN ---
Subjective Date of Service: 03/11/17 Interval History: Examined patient at the bedside, son present and translated questions. Denies chest pain, Denies shortness of breath or abd pain. Denies N/V/D. c/o mild lower back ache. Family History: Unchanged from Admission Social History: Unchanged from Admission Past Medical History: Unchanged from Admission Objective Active Medications: Acetaminophen (Tylenol Tab*) 650 mg PO Q4H PRN PRN Reason: FEVER/PAIN Last Admin: 03/11/17 09:00 Dose: 650 mg Amlodipine Besylate (Norvasc Tab*) 10 mg PO DAILY [facility] Last Admin: 03/11/17 09:00 Dose: 10 mg Atorvastatin Calcium (Lipitor*) 40 mg PO DAILY [facility] Last Admin: 03/11/17 09:00 Dose: 40 mg Dextrose (D50w Syringe 50 Ml*) 12.5 gm IV PUSH .FOR FS < 60 - SS PRN PRN Reason: FS < 60 Dextrose (D50w Syringe 50 Ml*) 12.5 gm IV PUSH .FOR FS < 60 - SS PRN PRN Reason: FS < 60 Heparin Sodium (Porcine) (Heparin Vial(*)) 5,000 units SUBCUT Q8HR [facility] Last Admin: 03/11/17 14:11 Dose: 5,000 units Hydralazine HCl (Apresoline Iv*) 10 mg IV SLOW PU Q4H PRN PRN Reason: SBP>150 Last Admin: 03/09/17 16:15 Dose: 10 mg Insulin Glargine (Lantus(*)) 10 units SUBCUT BEDTIME [facility] Last Admin: 03/10/17 20:03 Dose: 10 unit Insulin Human Lispro (Humalog*) 0 units SUBCUT AC [facility] PRN Reason: Protocol Last Admin: 03/11/17 12:34 Dose: 2 unit Metoprolol Succinate (Toprol Xl Tab*) 25 mg PO DAILY [facility] Last Admin: 03/11/17 09:00 Dose: 25 mg Ondansetron HCl (Zofran Inj*) 4 mg IV Q6H PRN PRN Reason: NAUSEA Oxygen Devices in Use Now: None Appearance: appears comfortable resting in bed. alert to verbal , follows commands Eyes: No Scleral Icterus Ears/Nose/Mouth/Throat: Clear Oropharnyx, Mucous Membranes Moist Neck: NL Appearance and Movements; NL JVP, Trachea Midline Respiratory: Symmetrical Chest Expansion and Respiratory Effort, - - Few scattered rhonchi in the bases Cardiovascular: NL Sounds; No Murmurs; No JVD, RRR, No Edema Abdominal: NL Sounds; No Tenderness; No Distention Extremities: No Edema, No Clubbing, Cyanosis Skin: No Rash or Ulcers Neurological: Alert and Oriented x 3, - - smile equal, tongue midline, no focal neuro defictis noted Nutrition: Taking PO's Result Diagrams: 03/11/17 04:27 03/11/17 04:47 Additional Lab and Data: Lab Results 03/07/17 03/07/17 03/07/17 Range/Units 11:31 11:31 11:31 WBC 9.1 (3.5-10.8) 10^3/ul RBC 3.82 L (4.0-5.4) 10^6/ul Hgb 11.5 L (14.0-18.0) g/dl Hct 35 L (42-52) % MCV 91 (80-94) fL MCH 30 (27-31) pg MCHC 33 (31-36) g/dl RDW 14 (10.5-15) % Plt Count 113 L (150-450) 10^3/ul MPV 9 (7.4-10.4) um3 Neut % (Auto) 64.6 (38-83) % Lymph % (Auto) 24.2 L (25-47) % [place] % (Auto) 9.5 H (1-9) % Eos % (Auto) 0.6 (0-6) % Baso % (Auto) 1.1 (0-2) % Absolute Neuts (auto) 5.9 (1.5-7.7) 10^3/ul Absolute Lymphs (auto) 2.2 (1.0-4.8) 10^3/ul Absolute Monos (auto) 0.9 H (0-0.8) 10^3/ul Absolute Eos (auto) 0.1 (0-0.6) 10^3/ul Absolute Basos (auto) 0.1 (0-0.2) 10^3/ul Absolute Nucleated RBC 0 10^3/ul Nucleated RBC % 0 INR (Anticoag Therapy) 0.96 (0.77-1.02) APTT 31.6 (26.0-36.3) seconds Sodium 134 (133-145) mmol/L Potassium 4.2 (3.5-5.0) mmol/L Chloride 105 (101-111) mmol/L Carbon Dioxide 23 (22-32) mmol/L Anion Gap 6 (2-11) mmol/L BUN 38 H (6-24) mg/dL Creatinine 2.14 H (0.67-1.17) mg/dL Est GFR ( Amer) 37.6 (>60) Est GFR (Non-Af Amer) 29.2 (>60) BUN/Creatinine Ratio 17.8 (8-20) Glucose 320 H (70-100) mg/dL Lactic Acid (0.5-2.0) mmol/L Calcium 8.4 L (8.6-10.3) mg/dL Total Bilirubin 0.40 (0.2-1.0) mg/dL AST 18 (13-39) U/L ALT 14 (7-52) U/L Alkaline Phosphatase 90 (34-104) U/L Troponin I 0.03 (<0.04) ng/mL C-Reactive Protein 24.78 H (< 5.00) mg/L B-Natriuretic Peptide ( - 100) pg/mL Total Protein 6.8 (6.4-8.9) g/dL Albumin 3.2 (3.2-5.2) g/dL Globulin 3.6 (2-4) g/dL Albumin/Globulin Ratio 0.9 L (1-3) Urine Color Urine Appearance Urine pH (5-9) Ur Specific [place] (1.010-1.030) Urine Protein (Negative) Urine Ketones (Negative) Urine Blood (Negative) Urine Nitrate (Negative) Urine Bilirubin (Negative) Urine Urobilinogen (Negative) Ur Leukocyte Esterase (Negative) Urine WBC (Auto) (Absent) Urine RBC (Auto) (Absent) Urine Bacteria (Absent) Urine Yeast (Absent) Urine Glucose (Negative) 03/07/17 03/07/17 03/07/17 Range/Units 11:31 11:31 11:47 WBC (3.5-10.8) 10^3/ul RBC (4.0-5.4) 10^6/ul Hgb (14.0-18.0) g/dl Hct (42-52) % MCV (80-94) fL MCH (27-31) pg MCHC (31-36) g/dl RDW (10.5-15) % Plt Count (150-450) 10^3/ul MPV (7.4-10.4) um3 Neut % (Auto) (38-83) % Lymph % (Auto) (25-47) % [place] % (Auto) (1-9) % Eos % (Auto) (0-6) % Baso % (Auto) (0-2) % Absolute Neuts (auto) (1.5-7.7) 10^3/ul Absolute Lymphs (auto) (1.0-4.8) 10^3/ul Absolute Monos (auto) (0-0.8) 10^3/ul Absolute Eos (auto) (0-0.6) 10^3/ul Absolute Basos (auto) (0-0.2) 10^3/ul Absolute Nucleated RBC 10^3/ul Nucleated RBC % INR (Anticoag Therapy) (0.77-1.02) APTT (26.0-36.3) seconds Sodium (133-145) mmol/L Potassium (3.5-5.0) mmol/L Chloride (101-111) mmol/L Carbon Dioxide (22-32) mmol/L Anion Gap (2-11) mmol/L BUN (6-24) mg/dL Creatinine (0.67-1.17) mg/dL Est GFR ( Amer) (>60) Est GFR (Non-Af Amer) (>60) BUN/Creatinine Ratio (8-20) Glucose (70-100) mg/dL Lactic Acid 1.1 (0.5-2.0) mmol/L Calcium (8.6-10.3) mg/dL Total Bilirubin (0.2-1.0) mg/dL AST (13-39) U/L ALT (7-52) U/L Alkaline Phosphatase (34-104) U/L Troponin I (<0.04) ng/mL C-Reactive Protein (< 5.00) mg/L B-Natriuretic Peptide 119 H ( - 100) pg/mL Total Protein (6.4-8.9) g/dL Albumin (3.2-5.2) g/dL Globulin (2-4) g/dL Albumin/Globulin Ratio (1-3) Urine Color Yellow Urine Appearance Cloudy Urine pH 7.0 (5-9) Ur Specific [place] 1.011 (1.010-1.030) Urine Protein 2+(100 mg/dl) H (Negative) Urine Ketones Negative (Negative) Urine Blood 1+ H (Negative) Urine Nitrate Negative (Negative) Urine Bilirubin Negative (Negative) Urine Urobilinogen Negative (Negative) Ur Leukocyte Esterase 2+ H (Negative) Urine WBC (Auto) 3+(>20/hpf) H (Absent) Urine RBC (Auto) Trace(0-2/hpf) (Absent) Urine Bacteria Absent (Absent) Urine Yeast Present H (Absent) Urine Glucose 3+(>=500 mg/dl) H (Negative) Microbiology and Other Data: Microbiology 03/08/17 07:21 Gram Stain - Final Sputum Expectorated Sputum Culture - Preliminary No Growth Day 1 03/07/17 21:02 Nasal Screen MRSA (PCR)(SRIDHAR) - Final Nasal Mrsa Positive 03/07/17 15:00 Influenza Types A,B Antigen (SRIDHAR) - Final Nasal Specimen received for Influenza A/B Molecular testing Assess/Plan/Problems-Billing Assessment: 89 y/o male patient presenting to [facility] [place] with complaints of weakness and worsening confusion found to have SAH, alert today , c/o mild lower back pain. - Patient Problems (1) DNR (do not resuscitate) Current Visit: Yes Status: Acute Priority: High (2) DVT prophylaxis Current Visit: Yes Status: Acute Priority: High Code(s): GFC7567 - SNOMED Code(s): 525443590 Comment: SCD (3) Diabetes Current Visit: Yes Status: Acute Priority: High Code(s): E11.9 - TYPE 2 DIABETES MELLITUS WITHOUT COMPLICATIONS SNOMED Code(s): 05366529 Comment: continue lantus and sliding scale (4) HLD (hyperlipidemia) Current Visit: Yes Status: Acute Priority: High Code(s): E78.5 - HYPERLIPIDEMIA, UNSPECIFIED SNOMED Code(s): 34854769 Comment: Continue statin (5) HTN (hypertension) Current Visit: Yes Status: Acute Priority: High Code(s): I10 - ESSENTIAL ( PRIMARY) HYPERTENSION SNOMED Code(s): 59138016 Comment: Bloop pressure stable, continue PO meds, (6) SAH (subarachnoid hemorrhage) Current Visit: Yes Status: Acute Priority: High Code(s): I60.9 - NONTRAUMATIC SUBARACHNOID HEMORRHAGE, UNSPECIFIED SNOMED Code(s): 119300519 Comment: No surgery at this point, SAH stable, continue with medical management, neuro checks q shift, Will get a PT evaluation Will have a Swallow eval completed Pending rehab placement at this time Status and Disposition: PT eval, waiting for placement, medical management of SAH
[2017-03-11] MEDS: Insulin GLARGINE(*) 1 UNITS UNIT SUBCUT SCH (20:54)
[2017-03-12] MEDS: Acetaminophen TAB* 325 MG PO PRN ×3 (00:52→23:37)
[2017-03-12] MEDS: Benzonatate CAP* 100 MG PO PRN ×2 (00:52→23:37)
[2017-03-12] MEDS: Heparin VIAL(*) 5000 UNITS/ML VIAL (FIVE THOUSAND) SUBCUT SCH ×3 (05:11→22:28)
[2017-03-12] MEDS: Insulin LISPRO* 1 UNITS UNIT SUBCUT SCH ×3 (07:41→17:32)
[2017-03-12] MEDS: Metoprolol Succinate XL TAB* 25 MG PO SCH (09:07)
[2017-03-12] MEDS: Atorvastatin* 40 MG TAB PO SCH (09:07)
[2017-03-12] MEDS: amLODIPine TAB* 5 MG PO SCH (09:07)
[2017-03-12] MEDS: Insulin GLARGINE(*) 1 UNITS UNIT SUBCUT SCH (22:28)
--- NOTE | 2017-03-12 23:52 | PN ---
Subjective Date of Service: 03/12/17 Interval History: Son at the bedside, interpretation provided by the son. Patient denies chest pain, Shortness of breath or abd pain. Denies N/V/D Family History: Unchanged from Admission Social History: Unchanged from Admission Past Medical History: Unchanged from Admission Objective Active Medications: Acetaminophen (Tylenol Tab*) 650 mg PO Q4H PRN PRN Reason: FEVER/PAIN Last Admin: 03/12/17 23:37 Dose: 650 mg Amlodipine Besylate (Norvasc Tab*) 10 mg PO DAILY [facility] Last Admin: 03/12/17 09:07 Dose: 10 mg Atorvastatin Calcium (Lipitor*) 40 mg PO DAILY [facility] Last Admin: 03/12/17 09:07 Dose: 40 mg Benzonatate (Tessalon Cap*) 100 mg PO BID PRN PRN Reason: COUGH Last Admin: 03/12/17 23:37 Dose: 100 mg Dextrose (D50w Syringe 50 Ml*) 12.5 gm IV PUSH .FOR FS < 60 - SS PRN PRN Reason: FS < 60 Dextrose (D50w Syringe 50 Ml*) 12.5 gm IV PUSH .FOR FS < 60 - SS PRN PRN Reason: FS < 60 Heparin Sodium (Porcine) (Heparin Vial(*)) 5,000 units SUBCUT Q8HR [facility] Last Admin: 03/12/17 22:28 Dose: 5,000 units Hydralazine HCl (Apresoline Iv*) 10 mg IV SLOW PU Q4H PRN PRN Reason: SBP>150 Last Admin: 03/09/17 16:15 Dose: 10 mg Insulin Glargine (Lantus(*)) 10 units SUBCUT BEDTIME [facility] Last Admin: 03/12/17 22:28 Dose: 10 unit Insulin Human Lispro (Humalog*) 0 units SUBCUT AC [facility] PRN Reason: Protocol Last Admin: 03/12/17 17:32 Dose: 1 unit Metoprolol Succinate (Toprol Xl Tab*) 25 mg PO DAILY [facility] Last Admin: 03/12/17 09:07 Dose: 25 mg Ondansetron HCl (Zofran Inj*) 4 mg IV Q6H PRN PRN Reason: NAUSEA Oxygen Devices in Use Now: None Eyes: No Scleral Icterus Ears/Nose/Mouth/Throat: Clear Oropharnyx, Mucous Membranes Moist Neck: NL Appearance and Movements; NL JVP, Trachea Midline Respiratory: Symmetrical Chest Expansion and Respiratory Effort, Clear to Auscultation, - - diminished in the bases bilat. Cardiovascular: NL Sounds; No Murmurs; No JVD, RRR, No Edema Abdominal: NL Sounds; No Tenderness; No Distention Extremities: No Edema, No Clubbing, Cyanosis Skin: No Rash or Ulcers Neurological: Alert and Oriented x 3, - - smile equal, tongue midline Nutrition: Taking PO's Result Diagrams: 03/11/17 04:27 03/11/17 04:47 Additional Lab and Data: Lab Results 03/07/17 03/07/17 03/07/17 Range/Units 11:31 11:31 11:31 WBC 9.1 (3.5-10.8) 10^3/ul RBC 3.82 L (4.0-5.4) 10^6/ul Hgb 11.5 L (14.0-18.0) g/dl Hct 35 L (42-52) % MCV 91 (80-94) fL MCH 30 (27-31) pg MCHC 33 (31-36) g/dl RDW 14 (10.5-15) % Plt Count 113 L (150-450) 10^3/ul MPV 9 (7.4-10.4) um3 Neut % (Auto) 64.6 (38-83) % Lymph % (Auto) 24.2 L (25-47) % [place] % (Auto) 9.5 H (1-9) % Eos % (Auto) 0.6 (0-6) % Baso % (Auto) 1.1 (0-2) % Absolute Neuts (auto) 5.9 (1.5-7.7) 10^3/ul Absolute Lymphs (auto) 2.2 (1.0-4.8) 10^3/ul Absolute Monos (auto) 0.9 H (0-0.8) 10^3/ul Absolute Eos (auto) 0.1 (0-0.6) 10^3/ul Absolute Basos (auto) 0.1 (0-0.2) 10^3/ul Absolute Nucleated RBC 0 10^3/ul Nucleated RBC % 0 INR (Anticoag Therapy) 0.96 (0.77-1.02) APTT 31.6 (26.0-36.3) seconds Sodium 134 (133-145) mmol/L Potassium 4.2 (3.5-5.0) mmol/L Chloride 105 (101-111) mmol/L Carbon Dioxide 23 (22-32) mmol/L Anion Gap 6 (2-11) mmol/L BUN 38 H (6-24) mg/dL Creatinine 2.14 H (0.67-1.17) mg/dL Est GFR ( Amer) 37.6 (>60) Est GFR (Non-Af Amer) 29.2 (>60) BUN/Creatinine Ratio 17.8 (8-20) Glucose 320 H (70-100) mg/dL Lactic Acid (0.5-2.0) mmol/L Calcium 8.4 L (8.6-10.3) mg/dL Total Bilirubin 0.40 (0.2-1.0) mg/dL AST 18 (13-39) U/L ALT 14 (7-52) U/L Alkaline Phosphatase 90 (34-104) U/L Troponin I 0.03 (<0.04) ng/mL C-Reactive Protein 24.78 H (< 5.00) mg/L B-Natriuretic Peptide ( - 100) pg/mL Total Protein 6.8 (6.4-8.9) g/dL Albumin 3.2 (3.2-5.2) g/dL Globulin 3.6 (2-4) g/dL Albumin/Globulin Ratio 0.9 L (1-3) Urine Color Urine Appearance Urine pH (5-9) Ur Specific [place] (1.010-1.030) Urine Protein (Negative) Urine Ketones (Negative) Urine Blood (Negative) Urine Nitrate (Negative) Urine Bilirubin (Negative) Urine Urobilinogen (Negative) Ur Leukocyte Esterase (Negative) Urine WBC (Auto) (Absent) Urine RBC (Auto) (Absent) Urine Bacteria (Absent) Urine Yeast (Absent) Urine Glucose (Negative) 03/07/17 03/07/17 03/07/17 Range/Units 11:31 11:31 11:47 WBC (3.5-10.8) 10^3/ul RBC (4.0-5.4) 10^6/ul Hgb (14.0-18.0) g/dl Hct (42-52) % MCV (80-94) fL MCH (27-31) pg MCHC (31-36) g/dl RDW (10.5-15) % Plt Count (150-450) 10^3/ul MPV (7.4-10.4) um3 Neut % (Auto) (38-83) % Lymph % (Auto) (25-47) % [place] % (Auto) (1-9) % Eos % (Auto) (0-6) % Baso % (Auto) (0-2) % Absolute Neuts (auto) (1.5-7.7) 10^3/ul Absolute Lymphs (auto) (1.0-4.8) 10^3/ul Absolute Monos (auto) (0-0.8) 10^3/ul Absolute Eos (auto) (0-0.6) 10^3/ul Absolute Basos (auto) (0-0.2) 10^3/ul Absolute Nucleated RBC 10^3/ul Nucleated RBC % INR (Anticoag Therapy) (0.77-1.02) APTT (26.0-36.3) seconds Sodium (133-145) mmol/L Potassium (3.5-5.0) mmol/L Chloride (101-111) mmol/L Carbon Dioxide (22-32) mmol/L Anion Gap (2-11) mmol/L BUN (6-24) mg/dL Creatinine (0.67-1.17) mg/dL Est GFR ( Amer) (>60) Est GFR (Non-Af Amer) (>60) BUN/Creatinine Ratio (8-20) Glucose (70-100) mg/dL Lactic Acid 1.1 (0.5-2.0) mmol/L Calcium (8.6-10.3) mg/dL Total Bilirubin (0.2-1.0) mg/dL AST (13-39) U/L ALT (7-52) U/L Alkaline Phosphatase (34-104) U/L Troponin I (<0.04) ng/mL C-Reactive Protein (< 5.00) mg/L B-Natriuretic Peptide 119 H ( - 100) pg/mL Total Protein (6.4-8.9) g/dL Albumin (3.2-5.2) g/dL Globulin (2-4) g/dL Albumin/Globulin Ratio (1-3) Urine Color Yellow Urine Appearance Cloudy Urine pH 7.0 (5-9) Ur Specific [place] 1.011 (1.010-1.030) Urine Protein 2+(100 mg/dl) H (Negative) Urine Ketones Negative (Negative) Urine Blood 1+ H (Negative) Urine Nitrate Negative (Negative) Urine Bilirubin Negative (Negative) Urine Urobilinogen Negative (Negative) Ur Leukocyte Esterase 2+ H (Negative) Urine WBC (Auto) 3+(>20/hpf) H (Absent) Urine RBC (Auto) Trace(0-2/hpf) (Absent) Urine Bacteria Absent (Absent) Urine Yeast Present H (Absent) Urine Glucose 3+(>=500 mg/dl) H (Negative) Microbiology and Other Data: Microbiology 03/08/17 07:21 Gram Stain - Final Sputum Expectorated Sputum Culture - Preliminary No Growth Day 1 03/07/17 21:02 Nasal Screen MRSA (PCR)(SRIDHAR) - Final Nasal Mrsa Positive 03/07/17 15:00 Influenza Types A,B Antigen (SRIDHAR) - Final Nasal Specimen received for Influenza A/B Molecular testing Assess/Plan/Problems-Billing Assessment: 89 y/o male patient presenting to [facility] [place] with complaints of weakness and worsening confusion found to have SAH, alert today , c/o mild lower back pain at times. Waiting for rehab placement - Patient Problems (1) DNR (do not resuscitate) Current Visit: Yes Status: Acute Priority: High (2) DVT prophylaxis Current Visit: Yes Status: Acute Priority: High Code(s): VMD3286 - SNOMED Code(s): 061550524 Comment: SCD (3) Diabetes Current Visit: Yes Status: Acute Priority: High Code(s): E11.9 - TYPE 2 DIABETES MELLITUS WITHOUT COMPLICATIONS SNOMED Code(s): 65839189 Comment: continue lantus and sliding scale (4) HLD (hyperlipidemia) Current Visit: Yes Status: Acute Priority: High Code(s): E78.5 - HYPERLIPIDEMIA, UNSPECIFIED SNOMED Code(s): 92334022 Comment: Continue statin (5) HTN (hypertension) Current Visit: Yes Status: Acute Priority: High Code(s): I10 - ESSENTIAL ( PRIMARY) HYPERTENSION SNOMED Code(s): 46588206 Comment: Bloop pressure stable, continue PO meds, (6) SAH (subarachnoid hemorrhage) Current Visit: Yes Status: Acute Priority: High Code(s): I60.9 - NONTRAUMATIC SUBARACHNOID HEMORRHAGE, UNSPECIFIED SNOMED Code(s): 062581666 Comment: No surgery at this point, SAH stable, continue with medical management, neuro checks q shift, Will get a PT evaluation Will have a Swallow eval completed Pending rehab placement at this time Status and Disposition: PT eval, waiting for placement, medical management of SAH
[2017-03-13] MEDS: Heparin VIAL(*) 5000 UNITS/ML VIAL (FIVE THOUSAND) SUBCUT SCH ×3 (05:52→20:24)
[2017-03-13] MEDS: Insulin LISPRO* 1 UNITS UNIT SUBCUT SCH ×3 (08:57→17:12)
[2017-03-13] MEDS: Atorvastatin* 40 MG TAB PO SCH (09:02)
[2017-03-13] MEDS: amLODIPine TAB* 5 MG PO SCH (09:02)
[2017-03-13] MEDS: Metoprolol Succinate XL TAB* 25 MG PO SCH (09:02)
[2017-03-13] MEDS: Acetaminophen TAB* 325 MG PO PRN ×2 (09:50→16:12)
--- NOTE | 2017-03-13 16:00 | PN ---
Subjective Date of Service: 03/13/17 Interval History: Patient examined at the bedside, staff fluent in mandarin present for interpretation. Patient denies chest pain, shortness of breath or abd pain. Denies N/V/D C/o lower back pain. Family History: Unchanged from Admission Social History: Unchanged from Admission Past Medical History: Unchanged from Admission Objective Active Medications: Acetaminophen (Tylenol Tab*) 650 mg PO Q4H PRN PRN Reason: FEVER/PAIN Last Admin: 03/13/17 09:50 Dose: 650 mg Amlodipine Besylate (Norvasc Tab*) 10 mg PO DAILY [facility] Last Admin: 03/13/17 09:02 Dose: 10 mg Atorvastatin Calcium (Lipitor*) 40 mg PO DAILY [facility] Last Admin: 03/13/17 09:02 Dose: 40 mg Benzonatate (Tessalon Cap*) 100 mg PO BID PRN PRN Reason: COUGH Last Admin: 03/12/17 23:37 Dose: 100 mg Dextrose (D50w Syringe 50 Ml*) 12.5 gm IV PUSH .FOR FS < 60 - SS PRN PRN Reason: FS < 60 Dextrose (D50w Syringe 50 Ml*) 12.5 gm IV PUSH .FOR FS < 60 - SS PRN PRN Reason: FS < 60 Heparin Sodium (Porcine) (Heparin Vial(*)) 5,000 units SUBCUT Q8HR [facility] Last Admin: 03/13/17 13:34 Dose: 5,000 units Hydralazine HCl (Apresoline Iv*) 10 mg IV SLOW PU Q4H PRN PRN Reason: SBP>150 Last Admin: 03/09/17 16:15 Dose: 10 mg Insulin Glargine (Lantus(*)) 10 units SUBCUT BEDTIME [facility] Last Admin: 03/12/17 22:28 Dose: 10 unit Insulin Human Lispro (Humalog*) 0 units SUBCUT AC [facility] PRN Reason: Protocol Last Admin: 03/13/17 13:33 Dose: 3 unit Metoprolol Succinate (Toprol Xl Tab*) 25 mg PO DAILY [facility] Last Admin: 03/13/17 09:02 Dose: 25 mg Ondansetron HCl (Zofran Inj*) 4 mg IV Q6H PRN PRN Reason: NAUSEA Vital Signs - 8 hr 03/13/17 03/13/17 08:00 08:42 Temperature 98.7 F Pulse Rate 63 Respiratory 18 20 Rate Blood Pressure 137/47 (mmHg) O2 Sat by Pulse 98 Oximetry Oxygen Devices in Use Now: None Appearance: appears comfortable, awake and alert Eyes: No Scleral Icterus Ears/Nose/Mouth/Throat: Clear Oropharnyx, Mucous Membranes Moist Neck: NL Appearance and Movements; NL JVP, Trachea Midline Respiratory: Symmetrical Chest Expansion and Respiratory Effort, Clear to Auscultation Cardiovascular: NL Sounds; No Murmurs; No JVD, No Edema Abdominal: NL Sounds; No Tenderness; No Distention Extremities: No Edema, No Clubbing, Cyanosis Skin: No Rash or Ulcers Neurological: Alert and Oriented x 3, NL Muscle Strength and Tone, - - ambulated with a wheeled walker Nutrition: Taking PO's Result Diagrams: 03/11/17 04:27 03/11/17 04:47 Additional Lab and Data: Lab Results 03/07/17 03/07/17 03/07/17 Range/Units 11:31 11:31 11:31 WBC 9.1 (3.5-10.8) 10^3/ul RBC 3.82 L (4.0-5.4) 10^6/ul Hgb 11.5 L (14.0-18.0) g/dl Hct 35 L (42-52) % MCV 91 (80-94) fL MCH 30 (27-31) pg MCHC 33 (31-36) g/dl RDW 14 (10.5-15) % Plt Count 113 L (150-450) 10^3/ul MPV 9 (7.4-10.4) um3 Neut % (Auto) 64.6 (38-83) % Lymph % (Auto) 24.2 L (25-47) % Yates % (Auto) 9.5 H (1-9) % Eos % (Auto) 0.6 (0-6) % Baso % (Auto) 1.1 (0-2) % Absolute Neuts (auto) 5.9 (1.5-7.7) 10^3/ul Absolute Lymphs (auto) 2.2 (1.0-4.8) 10^3/ul Absolute Monos (auto) 0.9 H (0-0.8) 10^3/ul Absolute Eos (auto) 0.1 (0-0.6) 10^3/ul Absolute Basos (auto) 0.1 (0-0.2) 10^3/ul Absolute Nucleated RBC 0 10^3/ul Nucleated RBC % 0 INR (Anticoag Therapy) 0.96 (0.77-1.02) APTT 31.6 (26.0-36.3) seconds Sodium 134 (133-145) mmol/L Potassium 4.2 (3.5-5.0) mmol/L Chloride 105 (101-111) mmol/L Carbon Dioxide 23 (22-32) mmol/L Anion Gap 6 (2-11) mmol/L BUN 38 H (6-24) mg/dL Creatinine 2.14 H (0.67-1.17) mg/dL Est GFR ( Amer) 37.6 (>60) Est GFR (Non-Af Amer) 29.2 (>60) BUN/Creatinine Ratio 17.8 (8-20) Glucose 320 H (70-100) mg/dL Lactic Acid (0.5-2.0) mmol/L Calcium 8.4 L (8.6-10.3) mg/dL Total Bilirubin 0.40 (0.2-1.0) mg/dL AST 18 (13-39) U/L ALT 14 (7-52) U/L Alkaline Phosphatase 90 (34-104) U/L Troponin I 0.03 (<0.04) ng/mL C-Reactive Protein 24.78 H (< 5.00) mg/L B-Natriuretic Peptide ( - 100) pg/mL Total Protein 6.8 (6.4-8.9) g/dL Albumin 3.2 (3.2-5.2) g/dL Globulin 3.6 (2-4) g/dL Albumin/Globulin Ratio 0.9 L (1-3) Urine Color Urine Appearance Urine pH (5-9) Ur Specific Whitestone (1.010-1.030) Urine Protein (Negative) Urine Ketones (Negative) Urine Blood (Negative) Urine Nitrate (Negative) Urine Bilirubin (Negative) Urine Urobilinogen (Negative) Ur Leukocyte Esterase (Negative) Urine WBC (Auto) (Absent) Urine RBC (Auto) (Absent) Urine Bacteria (Absent) Urine Yeast (Absent) Urine Glucose (Negative) 03/07/17 03/07/17 03/07/17 Range/Units 11:31 11:31 11:47 WBC (3.5-10.8) 10^3/ul RBC (4.0-5.4) 10^6/ul Hgb (14.0-18.0) g/dl Hct (42-52) % MCV (80-94) fL MCH (27-31) pg MCHC (31-36) g/dl RDW (10.5-15) % Plt Count (150-450) 10^3/ul MPV (7.4-10.4) um3 Neut % (Auto) (38-83) % Lymph % (Auto) (25-47) % Yates % (Auto) (1-9) % Eos % (Auto) (0-6) % Baso % (Auto) (0-2) % Absolute Neuts (auto) (1.5-7.7) 10^3/ul Absolute Lymphs (auto) (1.0-4.8) 10^3/ul Absolute Monos (auto) (0-0.8) 10^3/ul Absolute Eos (auto) (0-0.6) 10^3/ul Absolute Basos (auto) (0-0.2) 10^3/ul Absolute Nucleated RBC 10^3/ul Nucleated RBC % INR (Anticoag Therapy) (0.77-1.02) APTT (26.0-36.3) seconds Sodium (133-145) mmol/L Potassium (3.5-5.0) mmol/L Chloride (101-111) mmol/L Carbon Dioxide (22-32) mmol/L Anion Gap (2-11) mmol/L BUN (6-24) mg/dL Creatinine (0.67-1.17) mg/dL Est GFR ( Amer) (>60) Est GFR (Non-Af Amer) (>60) BUN/Creatinine Ratio (8-20) Glucose (70-100) mg/dL Lactic Acid 1.1 (0.5-2.0) mmol/L Calcium (8.6-10.3) mg/dL Total Bilirubin (0.2-1.0) mg/dL AST (13-39) U/L ALT (7-52) U/L Alkaline Phosphatase (34-104) U/L Troponin I (<0.04) ng/mL C-Reactive Protein (< 5.00) mg/L B-Natriuretic Peptide 119 H ( - 100) pg/mL Total Protein (6.4-8.9) g/dL Albumin (3.2-5.2) g/dL Globulin (2-4) g/dL Albumin/Globulin Ratio (1-3) Urine Color Yellow Urine Appearance Cloudy Urine pH 7.0 (5-9) Ur Specific Whitestone 1.011 (1.010-1.030) Urine Protein 2+(100 mg/dl) H (Negative) Urine Ketones Negative (Negative) Urine Blood 1+ H (Negative) Urine Nitrate Negative (Negative) Urine Bilirubin Negative (Negative) Urine Urobilinogen Negative (Negative) Ur Leukocyte Esterase 2+ H (Negative) Urine WBC (Auto) 3+(>20/hpf) H (Absent) Urine RBC (Auto) Trace(0-2/hpf) (Absent) Urine Bacteria Absent (Absent) Urine Yeast Present H (Absent) Urine Glucose 3+(>=500 mg/dl) H (Negative) Microbiology and Other Data: Microbiology 03/08/17 07:21 Gram Stain - Final Sputum Expectorated Sputum Culture - Preliminary No Growth Day 1 03/07/17 21:02 Nasal Screen MRSA (PCR)(SRIDHAR) - Final Nasal Mrsa Positive 03/07/17 15:00 Influenza Types A,B Antigen (SRIDHAR) - Final Nasal Specimen received for Influenza A/B Molecular testing Assess/Plan/Problems-Billing Assessment: 89 y/o [place] [facility] [place] of [place] and worsening confusion found to have SAH, alert today , c/o mild lower back pain at times. Waiting for rehab placement will have bed tomorrow - Patient Problems (1) DNR (do not resuscitate) Current Visit: Yes Status: Acute Priority: High (2) DVT prophylaxis Current Visit: Yes Status: Acute Priority: High Code(s): TFI2962 - SNOMED Code(s): 499619765 Comment: SCD (3) Diabetes Current Visit: Yes Status: Acute Priority: High Code(s): E11.9 - TYPE 2 DIABETES MELLITUS WITHOUT COMPLICATIONS SNOMED Code(s): 96502063 Comment: continue lantus and sliding scale (4) HLD (hyperlipidemia) Current Visit: Yes Status: Acute Priority: High Code(s): E78.5 - HYPERLIPIDEMIA, UNSPECIFIED SNOMED Code(s): 54099172 Comment: Continue statin (5) HTN (hypertension) Current Visit: Yes Status: Acute Priority: High Code(s): I10 - ESSENTIAL ( PRIMARY) HYPERTENSION SNOMED Code(s): 66439198 Comment: Bloop pressure stable, continue PO meds, (6) SAH (subarachnoid hemorrhage) Current Visit: Yes Status: Acute Priority: High Code(s): I60.9 - NONTRAUMATIC SUBARACHNOID HEMORRHAGE, UNSPECIFIED SNOMED Code(s): 425277611 Comment: No surgery at this point, SAH stable, continue with medical management, neuro checks q shift, Will get a PT evaluation Will have a Swallow eval completed Pending rehab placement at this time Status and Disposition: PT eval, waiting for placement, medical management of SAH , will be transferred tomorrow
[2017-03-13] MEDS: Insulin GLARGINE(*) 1 UNITS UNIT SUBCUT SCH (20:24)
[2017-03-14] MEDS: Heparin VIAL(*) 5000 UNITS/ML VIAL (FIVE THOUSAND) SUBCUT SCH ×2 (05:45→13:56)
[2017-03-14 08:46] VITALS: BP 127/38
[2017-03-14] MEDS: amLODIPine TAB* 5 MG PO SCH (08:57)
[2017-03-14] MEDS: Atorvastatin* 40 MG TAB PO SCH (08:57)
[2017-03-14] MEDS: Metoprolol Succinate XL TAB* 25 MG PO SCH (08:57)
[2017-03-14] MEDS: Acetaminophen TAB* 325 MG PO PRN (08:57)
[2017-03-14] MEDS: Insulin LISPRO* 1 UNITS UNIT SUBCUT SCH ×2 (08:58→12:04)
--- NOTE | 2017-03-14 10:07 | PN ---
Subjective Date of Service: 03/14/17 Interval History: Sitting in the chair, denies chest pain, shortness of breath or abd pain. Denies N/V/D. Daughter is present for translation. C/o mild lower back pain unchanged. Denies dizziness or headache. Denies visual changes. Family History: Unchanged from Admission Social History: Unchanged from Admission Past Medical History: Unchanged from Admission Objective Active Medications: Acetaminophen (Tylenol Tab*) 650 mg PO Q4H PRN PRN Reason: FEVER/PAIN Last Admin: 03/14/17 08:57 Dose: 650 mg Amlodipine Besylate (Norvasc Tab*) 10 mg PO DAILY [facility] Last Admin: 03/14/17 08:57 Dose: 10 mg Atorvastatin Calcium (Lipitor*) 40 mg PO DAILY [facility] Last Admin: 03/14/17 08:57 Dose: 40 mg Benzonatate (Tessalon Cap*) 100 mg PO BID PRN PRN Reason: COUGH Last Admin: 03/12/17 23:37 Dose: 100 mg Dextrose (D50w Syringe 50 Ml*) 12.5 gm IV PUSH .FOR FS < 60 - SS PRN PRN Reason: FS < 60 Dextrose (D50w Syringe 50 Ml*) 12.5 gm IV PUSH .FOR FS < 60 - SS PRN PRN Reason: FS < 60 Heparin Sodium (Porcine) (Heparin Vial(*)) 5,000 units SUBCUT Q8HR [facility] Last Admin: 03/14/17 05:45 Dose: 5,000 units Hydralazine HCl (Apresoline Iv*) 10 mg IV SLOW PU Q4H PRN PRN Reason: SBP>150 Last Admin: 03/09/17 16:15 Dose: 10 mg Insulin Glargine (Lantus(*)) 10 units SUBCUT BEDTIME [facility] Last Admin: 03/13/17 20:24 Dose: 10 unit Insulin Human Lispro (Humalog*) 0 units SUBCUT AC [facility] PRN Reason: Protocol Last Admin: 03/14/17 08:58 Dose: 1 unit Metoprolol Succinate (Toprol Xl Tab*) 25 mg PO DAILY [facility] Last Admin: 03/14/17 08:57 Dose: 25 mg Ondansetron HCl (Zofran Inj*) 4 mg IV Q6H PRN PRN Reason: NAUSEA Vital Signs - 8 hr 03/14/17 03/14/1703/14/18 03:48 08:00 08:09 Temperature 97.6 F 98.7 F Pulse Rate 63 65 Respiratory 24 18 24 Rate Blood Pressure 125/38 127/38 (mmHg) O2 Sat by Pulse 97 97 Oximetry Oxygen Devices in Use Now: None Appearance: appears well, sitting in the chair, Eyes: No Scleral Icterus, PERRLA Ears/Nose/Mouth/Throat: Clear Oropharnyx, Mucous Membranes Moist Neck: NL Appearance and Movements; NL JVP, Trachea Midline Respiratory: Symmetrical Chest Expansion and Respiratory Effort, Clear to Auscultation Cardiovascular: NL Sounds; No Murmurs; No JVD, RRR, No Edema Abdominal: NL Sounds; No Tenderness; No Distention Extremities: No Edema, No Clubbing, Cyanosis Skin: No Rash or Ulcers Neurological: NL Gait - walks with wheeled walker , NL Muscle Strength and Tone , - - Alert, oriented to self and place, confused time. follow all commands appropriately, Nutrition: Taking PO's Result Diagrams: 03/11/17 04:27 03/11/17 04:47 Additional Lab and Data: Lab Results 03/07/17 03/07/17 03/07/17 Range/Units 11:31 11:31 11:31 WBC 9.1 (3.5-10.8) 10^3/ul RBC 3.82 L (4.0-5.4) 10^6/ul Hgb 11.5 L (14.0-18.0) g/dl Hct 35 L (42-52) % MCV 91 (80-94) fL MCH 30 (27-31) pg MCHC 33 (31-36) g/dl RDW 14 (10.5-15) % Plt Count 113 L (150-450) 10^3/ul MPV 9 (7.4-10.4) um3 Neut % (Auto) 64.6 (38-83) % Lymph % (Auto) 24.2 L (25-47) % Laurens % (Auto) 9.5 H (1-9) % Eos % (Auto) 0.6 (0-6) % Baso % (Auto) 1.1 (0-2) % Absolute Neuts (auto) 5.9 (1.5-7.7) 10^3/ul Absolute Lymphs (auto) 2.2 (1.0-4.8) 10^3/ul Absolute Monos (auto) 0.9 H (0-0.8) 10^3/ul Absolute Eos (auto) 0.1 (0-0.6) 10^3/ul Absolute Basos (auto) 0.1 (0-0.2) 10^3/ul Absolute Nucleated RBC 0 10^3/ul Nucleated RBC % 0 INR (Anticoag Therapy) 0.96 (0.77-1.02) APTT 31.6 (26.0-36.3) seconds Sodium 134 (133-145) mmol/L Potassium 4.2 (3.5-5.0) mmol/L Chloride 105 (101-111) mmol/L Carbon Dioxide 23 (22-32) mmol/L Anion Gap 6 (2-11) mmol/L BUN 38 H (6-24) mg/dL Creatinine 2.14 H (0.67-1.17) mg/dL Est GFR ( Amer) 37.6 (>60) Est GFR (Non-Af Amer) 29.2 (>60) BUN/Creatinine Ratio 17.8 (8-20) Glucose 320 H (70-100) mg/dL Lactic Acid (0.5-2.0) mmol/L Calcium 8.4 L (8.6-10.3) mg/dL Total Bilirubin 0.40 (0.2-1.0) mg/dL AST 18 (13-39) U/L ALT 14 (7-52) U/L Alkaline Phosphatase 90 (34-104) U/L Troponin I 0.03 (<0.04) ng/mL C-Reactive Protein 24.78 H (< 5.00) mg/L B-Natriuretic Peptide ( - 100) pg/mL Total Protein 6.8 (6.4-8.9) g/dL Albumin 3.2 (3.2-5.2) g/dL Globulin 3.6 (2-4) g/dL Albumin/Globulin Ratio 0.9 L (1-3) Urine Color Urine Appearance Urine pH (5-9) Ur Specific Welsh (1.010-1.030) Urine Protein (Negative) Urine Ketones (Negative) Urine Blood (Negative) Urine Nitrate (Negative) Urine Bilirubin (Negative) Urine Urobilinogen (Negative) Ur Leukocyte Esterase (Negative) Urine WBC (Auto) (Absent) Urine RBC (Auto) (Absent) Urine Bacteria (Absent) Urine Yeast (Absent) Urine Glucose (Negative) 03/07/17 03/07/17 03/07/17 Range/Units 11:31 11:31 11:47 WBC (3.5-10.8) 10^3/ul RBC (4.0-5.4) 10^6/ul Hgb (14.0-18.0) g/dl Hct (42-52) % MCV (80-94) fL MCH (27-31) pg MCHC (31-36) g/dl RDW (10.5-15) % Plt Count (150-450) 10^3/ul MPV (7.4-10.4) um3 Neut % (Auto) (38-83) % Lymph % (Auto) (25-47) % Laurens % (Auto) (1-9) % Eos % (Auto) (0-6) % Baso % (Auto) (0-2) % Absolute Neuts (auto) (1.5-7.7) 10^3/ul Absolute Lymphs (auto) (1.0-4.8) 10^3/ul Absolute Monos (auto) (0-0.8) 10^3/ul Absolute Eos (auto) (0-0.6) 10^3/ul Absolute Basos (auto) (0-0.2) 10^3/ul Absolute Nucleated RBC 10^3/ul Nucleated RBC % INR (Anticoag Therapy) (0.77-1.02) APTT (26.0-36.3) seconds Sodium (133-145) mmol/L Potassium (3.5-5.0) mmol/L Chloride (101-111) mmol/L Carbon Dioxide (22-32) mmol/L Anion Gap (2-11) mmol/L BUN (6-24) mg/dL Creatinine (0.67-1.17) mg/dL Est GFR ( Amer) (>60) Est GFR (Non-Af Amer) (>60) BUN/Creatinine Ratio (8-20) Glucose (70-100) mg/dL Lactic Acid 1.1 (0.5-2.0) mmol/L Calcium (8.6-10.3) mg/dL Total Bilirubin (0.2-1.0) mg/dL AST (13-39) U/L ALT (7-52) U/L Alkaline Phosphatase (34-104) U/L Troponin I (<0.04) ng/mL C-Reactive Protein (< 5.00) mg/L B-Natriuretic Peptide 119 H ( - 100) pg/mL Total Protein (6.4-8.9) g/dL Albumin (3.2-5.2) g/dL Globulin (2-4) g/dL Albumin/Globulin Ratio (1-3) Urine Color Yellow Urine Appearance Cloudy Urine pH 7.0 (5-9) Ur Specific Welsh 1.011 (1.010-1.030) Urine Protein 2+(100 mg/dl) H (Negative) Urine Ketones Negative (Negative) Urine Blood 1+ H (Negative) Urine Nitrate Negative (Negative) Urine Bilirubin Negative (Negative) Urine Urobilinogen Negative (Negative) Ur Leukocyte Esterase 2+ H (Negative) Urine WBC (Auto) 3+(>20/hpf) H (Absent) Urine RBC (Auto) Trace(0-2/hpf) (Absent) Urine Bacteria Absent (Absent) Urine Yeast Present H (Absent) Urine Glucose 3+(>=500 mg/dl) H (Negative) Microbiology and Other Data: Microbiology 03/08/17 07:21 Gram Stain - Final Sputum Expectorated Sputum Culture - Preliminary No Growth Day 1 03/07/17 21:02 Nasal Screen MRSA (PCR)(SRIDHAR) - Final Nasal Mrsa Positive 03/07/17 15:00 Influenza Types A,B Antigen (SRIDHAR) - Final Nasal Specimen received for Influenza A/B Molecular testing Assess/Plan/Problems-Billing Assessment: 89 y/o male patient presenting to [facility] [place] with complaints of weakness and worsening confusion found to have SAH, alert today , c/o mild lower back pain at times. Will discharge to [facility] for rehab - Patient Problems (1) DNR (do not resuscitate) Status: Acute Priority: High (2) DVT prophylaxis Status: Acute Priority: High Code(s): ZDI5286 - SNOMED Code(s): 261253476 Comment: SCD (3) Diabetes Status: Acute Priority: High Code(s): E11.9 - TYPE 2 DIABETES MELLITUS WITHOUT COMPLICATIONS SNOMED Code(s): 12454974 Comment: Continue Lantus Continue Humalog (4) HLD (hyperlipidemia) Status: Acute Priority: High Code(s): E78.5 - HYPERLIPIDEMIA, UNSPECIFIED SNOMED Code(s): 58030253 Comment: Continue statin (5) HTN (hypertension) Status: Acute Priority: High Code(s): I10 - ESSENTIAL (PRIMARY) HYPERTENSION SNOMED Code(s): 58653566 Comment: Blood pressure stable, continue PO meds, (6) SAH (subarachnoid hemorrhage) Status: Acute Priority: High Code(s): I60.9 - NONTRAUMATIC SUBARACHNOID HEMORRHAGE, UNSPECIFIED SNOMED Code(s): 079241730 Comment: No surgery at this point, SAH stable, continue with medical management, neuro checks q day Will get a PT evaluation Will be discharged to [facility] Status and Disposition: PT eval, waiting for placement, medical management of SAH , will be discharged today to [facility] Continue PT therapy as [facility]. Fall precautions
--- NOTE | 2017-03-15 22:39 | DS ---
CC: Dr. Flynn* DISCHARGE SUMMARY: DATE OF ADMISSION: 03/07/17 DATE OF DISCHARGE: 03/14/17 PROVIDER: Carla Kerr NP. ATTENDING PHYSICIAN WHILE IN THE HOSPITAL: Dr. Cee Pedraza * (report dictated by Carla Kerr NP) CHIEF COMPLAINT: Cough. PRIMARY DIAGNOSES: 1. Subarachnoid hemorrhage. 2. Cough. SECONDARY DIAGNOSES: 1. Diabetes. 2. Hypertension. 3. Hyperlipidemia. 4. History of cerebrovascular accident. 5. Benign prostatic hyperplasia. 6. History of tuberculosis. STUDIES WHILE IN THE HOSPITAL: 1. Chest x-ray was completed on 03/07/17, impression: No active cardiopulmonary disease. 2. An electrocardiogram on 03/07/17, showed sinus rhythm, 79. 3. He had an MRI of the brain on 03/07/17, which showed: a. Small volume of subarachnoid hemorrhage at the right parietal lobe post central focus. Negative for mass effect. b. No compelling restricted diffusion to confirm acute or subacute ischemic infarct. c. Advanced involutional change and stigmata of chronic small vessel ischemic disease. He had a carotid Doppler done on 03/07/17. Carotid Doppler showed radiologist' s impression: 1. 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 2. 50% to 69% right internal carotid artery stenosis with interval worsening compared with 2014 exam. On 03/08/17, he had a CT of the brain, radiologist's impression: 1. Small area of subarachnoid hemorrhage in the posterior right frontal lobe sulcus, unchanged to slightly decreased from the prior study. 2. Atrophy and [id number] chronic small vessel ischemic changes. He had a repeat CT scan again on 03/09/17, radiologist's impression: 1. Small area of subarachnoid hemorrhage in the right frontal lobe, unchanged. 2. Atrophy and moderate to severe chronic small vessel ischemic changes. He had a repeat chest x-ray on 03/09/17: 1. No evidence for acute findings. 2. Chronic right upper lobe infiltrate, unchanged. DISCHARGE MEDICATIONS: 1. Acetaminophen 650 mg p.o. q.4 hours p.r.n. fever or pain. 2. Amlodipine 5 mg p.o. daily. 3. Atorvastatin 40 mg p.o. daily. 4. Benzonatate 100 mg p.o. b.i.d. p.r.n. for cough. 5. Lasix 20 mg p.o. daily. 6. NovoLog FlexPen 40 units with meals. 7. Lantus FlexPen 20 units subcu every evening. 8. Metoprolol 25 mg p.o. daily. HISTORY OF PRESENT ILLNESS AND HOSPITAL COURSE: Mr. Rodriguez is an 89-year-old male who has a history of diabetes, hypertension, hyperlipidemia, history of CVA , history of remote TB, BPH, who comes into the ER today complaining of a 2-day history of coughing and rhinorrhea. The patient's daughter noticed that when he was walking yesterday, he was falling to the left and he was not using his right side much like he normally had been. She also noticed that when he was eating thin liquids, he had trouble and was choking and coughing. She was concerned because he normally gets out of bed to commode and he was unable to do this. Normally, he walks with a walker and he was really unable to function and she noticed a decline in his condition. He had a CAT scan in the emergency room, which showed a calcification versus small hemorrhage. Due to his decline in neurological symptoms and his cough, we were asked to admit him to the hospital. While in the hospital, he had several studies done, CTs of the brain and a carotid Doppler. The carotid Doppler did show stenosis to the right and left internal arteries. The CT of the brain did show a small subarachnoid hemorrhage in the right parietal lobe. Please see complete report in the patient's medical chart. He was also had a consultation by the neurologist. Neurology impression from Dr. Uli Henderson. His impression was there was a very small hemorrhage and then some decline with possible aspiration and possible mild urinary tract infection. He looks to probably be at his baseline given his age and my discussion with Dr. Serna and his decision with the family, I do not recommend further evaluation. It does not look like an aneurysmal subarachnoid hemorrhage. I suspect this is probably from when he fell. I would not pursue his carotid stenosis any further. As far as I can tell , he has an old stroke and not a new one, so I do not think he was symptomatic carotid disease. Given his age and discussion with the family, I do not think surgical consideration is indicated. The patient while in the hospital was monitored medically. Routine lab work was drawn. He did have some mild anemia throughout his hospital stay. His last H and H was 10.6 and 33. His blood sugars have been running in the 150s to 200s. His last BMP, sodium was 138, potassium 3.9, chloride was 114, BUN was 24 and creatinine was 1.73. He has chronic kidney disease. His creatinine has ranged on 03/07/17, 2.14 and on 11/18, he was 1.73. This seems to be his baseline since 2013. He did have a urine culture while in the hospital. The urine culture was negative. He did have urine for Legionella and Streptococcus pneumoniae, which were both negative. He did have a flu A and B swab, which was negative. He was screened for MRSA, which was positive in his nares. His Gram stain and sputum culture were normal karly and his blood culture for aerobic and anaerobic showed no growth x5 days. Mr. Rodriguez is stable for discharge to [facility]. Vital signs are as follows: Temperature was 98.7 orally, heart rate was 65, respirations were 18, O2 saturation was 97% on room air, blood pressure was 127/38. Mr. Rodriguez only speaks Mandarin. He does understand a small amount of Faroese and will say some things in Faroese, but he mainly just speaks Mandarin and understands Mandarin. DISCHARGE PLAN: Mr. Rodriguez will be discharged to [facility]. Activity as tolerated. He does use a wheeled walker for ambulation. He should be placed on a heart healthy diet. He should use his walker when ambulating. He should have a PT and OT evaluation on arrival to [facility] to continue his strength building. Mr. Rodriguez should follow up with his primary care doctor in 4 to 7 days. If he develops any worsening or deterioration in neurological status, he should report to the emergency room. This is a summarized report of a complex medical history and hospital stay. For further details, please see the entire medical records. TIME SPENT: Time spent on this discharge was approximately 60 minutes, greater than half that time was spent with the patient and daughter discussing discharge plans and instructions. CONDITION ON DISCHARGE: Stable. CARLA KERR, SILVIA [id number]/[facility] #: [id number] MIRTHA
== END 2017-03-14 15:37 | DRG 86 ==
LOC: ED 10:06 → MEDTELE 14:25 → ICU 21:15 → MED 03-08 15:58 → MEDTELE 03-08 17:40
PROVIDERS: ADMIT Internal Medicine; ATTEND Internal Medicine
DX: S06.6X0A Traumatic subarachnoid hemorrhage without loss of consciousness, initial encounter (principal); I69.354 Hemiplegia and hemiparesis following cerebral infarction affecting left non-dominant side; D64.9 Anemia, unspecified; I65.29 Occlusion and stenosis of unspecified carotid artery; E11.9 Type 2 diabetes mellitus without complications; E78.5 Hyperlipidemia, unspecified; N40.0 Benign prostatic hyperplasia without lower urinary tract symptoms; Z66 Do not resuscitate; R05 Cough; F41.9 Anxiety disorder, unspecified; R29.705 NIHSS score 5; W19.XXXA Unspecified fall, initial encounter; R41.0 Disorientation, unspecified; M54.5 Low back pain; N18.9 Chronic kidney disease, unspecified; I12.9 Hypertensive chronic kidney disease with stage 1 through stage 4 chronic kidney disease, or unspecified chronic kidney disease; Z86.11 Personal history of tuberculosis; Z87.891 Personal history of nicotine dependence; Z98.42 Cataract extraction status, left eye; Z98.41 Cataract extraction status, right eye; Z81.8 Family history of other mental and behavioral disorders; Y92.9 Unspecified place or not applicable; Z79.4 Long term (current) use of insulin
CPT/HCPCS: 36415; 70450; 70551; 71045; 80048; 80053; 80061; 81003; 81015; 82947; 83036; 83605; 83880; 84484; 85014; 85018; 85025; 85060; 85610; 85730; 86140; 87040; 87070; 87086; 87205; 87502; 87641; 87899; 93005; 93880; 94760; 99284; A9270-GY; J0360; J0456; J0696; J1644; J2543